=== PATIENT | female | born 1980 | race Caucasian/White ===

== ENCOUNTER 2016-09-02 22:39 | Emergency (ER) | payer MEDICAID ==
[~2016-09-02] VITALS: Ht 162.6 cm; Wt 91.0 kg
[~2016-09-02 22:39] MED LIST: DOXY100T PO; IBUP-238 PO
[2016-09-02 22:41] VITALS: BP 125/80; PULSE 83; RESP 15; TEMP 98.4; O2SAT 100
[2016-09-02] MEDS ORDERED: TOPA100T11 PO (22:48)
[2016-09-02] MEDS ORDERED: ABIL5TAB6 PO (22:48)
[2016-09-02] MEDS ORDERED: LITH150C PO (22:48)
[2016-09-02] MEDS ORDERED: SODIUM CHLOR 0.9% 1000 ML INJ 1,000 ML IV SCH (23:21)
[2016-09-02] MEDS ORDERED: SODIUM CHLORIDE 0.9% FLUSH 5 ML FLUSH IVF PRN (23:30)
[2016-09-02 23:45] LABS: AUTOMATED NEUTROPHIL # 3.7 TH/MM3 (1.8-7.7); BASOPHIL # 0.1 TH/MM3 (0-0.2); BASOPHIL % 0.6 % (0.0-2.0); EOSINOPHIL # 0.2 TH/MM3 (0-0.4); EOSINOPHIL % 2.4 % (0.0-4.0); HEMATOCRIT 44.1 % (35.0-46.0); HEMO FLAGS DIFF FINAL; LYMPH % 47.8 % (9.0-44.0); LYMPHOCYTE # 4.3 TH/MM3 (1.0-4.8); MEAN CELL VOLUME 86.1 FL (80.0-100.0); MEAN CORPUSCULAR HEMOGLOBIN 30.5 PG (27.0-34.0); MEAN CORPUSCULAR HGB CONC 35.4 % (32.0-36.0); MONO % 7.5 % (0.0-8.0); NEUT % 41.7 % (16.0-70.0); PLATELET COUNT 260 TH/MM3 (150-450); RED BLOOD COUNT 5.12 MIL/MM3 (4.00-5.30); RED CELL DISTRIBUTION WIDTH 13.4 % (11.6-17.2)
[2016-09-03 00:02] LABS: ANION GAP 9 MEQ/L (5-15); AST (GOT) 17 U/L (15-37); BICARBONATE 23.5 MEQ/L (21.0-32.0); BLOOD UREA NITROGEN 5 MG/DL (7-18); CHLORIDE 104 MEQ/L (98-107); GLOMERULAR FILTRATION RATE 70 ML/MIN (>89); POTASSIUM 3.4 MEQ/L (3.5-5.1); SODIUM (NA) 136 MEQ/L (136-145)
[2016-09-03 00:05] LABS: ALKALINE PHOSPHATASE 61 U/L (45-117); ALT (GPT) 26 U/L (10-53); BACTERIA, URINE RARE /hpf; BLOOD, URINE NEG (NEG); COMMENT (UR) CULT NOT INDICATED; CULTURE IF INDICATED CULT NOT INDICATED; GLUCOSE,URINE NEG (NEG); KETONE, URINE NEG (NEG); NITRITE,URINE NEG (NEG); PH, URINE 5.5 (5.0-8.5); SQUAMOUS EPITHELIAL CELL URINE 1 /hpf (0-5); TOTAL BILIRUBIN ADULT 0.4 MG/DL (0.2-1.0); URINE COLOR COLORLESS (YELLW/STRAW)
--- NOTE | 2016-09-03 00:40 | PD ---
HPI Chief Complaint: Abdominal Pain Time Seen by Provider: 23:11 Travel History International Travel<30 days: No Contact w/Intl Traveler<30days: No Traveled to known affect area: No History of Present Illness HPI On taking the patient's history she states that she only came here tonight because a friend was bringing in her son for evaluation of head injury and thought she should be evaluated as well. Patient denies any fever denies any nausea vomiting denies any constipation or diarrhea. Denies any blood in the stool. Denies any vaginal bleeding or vaginal discharge. Denies any chance of . Patient does have a history of bipolar disorder and takes lithium. PFSH Past Medical History Hx Anticoagulant Therapy: No Cancer: Yes (Per patient, cervical cancer resulting in surgery in 2004.) Cardiovascular Problems: Yes Chemotherapy: No Cerebrovascular Accident: No Diabetes: Yes Patient Takes Glucophage: No Diminished Hearing: No Endocrine: Yes (HYPOGLYCEMIA) Headaches: Yes (Per patient, 1 time a day.) Psychiatric: Yes (Inpatient, outpatient, psychotropic medication, and diagnosis.) Respiratory: No Immunizations Current: Yes Schizophrenia: Yes ?: Not LMP: 08/17/16 Menopausal: No : 3 Para: 1 Miscarriage: 0 : 2 Dilation and Curettage (D&C): Yes Past Surgical History Gynecologic Surgery: Yes (2004 LEEPS) Hysterectomy: No Other Surgery: Yes (LEEP) Social History Alcohol Use: Yes (ALMOST DAILY) Tobacco Use: Yes (1PPD) Substance Use: Yes (H/O ETOH, 17 YR METH HX) Allergies-Medications (Allergen,Severity, Reaction): Coded Allergies: Naproxen (Unverified Allergy, Severe, SWELLING, 09/02/16) Zyprexa (Unverified Allergy, Severe, SWELLING, 09/02/16) Zoloft (Verified Allergy, Mild, CONFUSED, 09/02/16) Reported Meds & Prescriptions Reported Meds & Active Scripts Active Reported Abilify (Aripiprazole) 5 Mg Tab 5 Mg PO DAILY [place] Carbonate 150 Mg Cap 150 Mg PO BID Topamax (Topiramate) 100 Mg Tab 100 Mg PO BID Review of Systems Except as stated in HPI: all other systems reviewed are Neg Physical Exam Narrative GENERAL: Well-developed well-nourished no apparent distress. SKIN: Warm and dry. HEAD: Atraumatic. Normocephalic. EYES: Pupils equal and round. No scleral icterus. No injection or drainage. ENT: No nasal bleeding or discharge. Mucous membranes pink and moist. NECK: Trachea midline. No JVD. CARDIOVASCULAR: Regular rate and rhythm. No murmur appreciated. RESPIRATORY: No accessory muscle use. Clear to auscultation. Breath sounds equal bilaterally. GASTROINTESTINAL: Abdomen soft, non-tender, nondistended. Hepatic and splenic margins not palpable. No tenderness to deep palpation, no peritoneal signs, no rebound no percussive tenderness. MUSCULOSKELETAL: No obvious deformities. No clubbing. No cyanosis. No edema. NEUROLOGICAL: Awake and alert. No obvious cranial nerve deficits. Motor grossly within normal limits. Normal speech. PSYCHIATRIC: Appropriate mood and affect; insight and judgment normal. Data Data Last Documented VS Vital Signs Date Time Temp Pulse Resp B/P Pulse Ox O2 Delivery O2 Flow Rate FiO2 09/02/16 23:14 15 09/02/16 22:41 98.4 83 125/80 100 Room Air Orders Complete Blood Count With Diff (09/02/16 23:21) Comprehensive Metabolic Panel (09/02/16 23:21) Lipase (09/02/16 23:21) Iv Access Insert/Monitor (09/02/16 23:21) Ecg Monitoring (09/02/16 23:21) Oximetry (09/02/16 23:21) Sodium Chlor 0.9% 1000 Ml Inj (Ns 1000 M (09/02/16 23:21) Sodium Chloride 0.9% Flush (Ns Flush) (09/02/16 23:30) Electrocardiogram (09/02/16 23:21) [place] (Li) (09/02/16 23:23) Urinalysis - C+S If Indicated (09/02/16 23:31) Ed Urine Pregnancytest Poc (09/02/16 23:31) Acetaminophen (Tylenol) (09/03/16 00:45) Labs Laboratory Tests Test 09/02/16 23:30 White Blood Count 9.0 TH/MM3 Red Blood Count 5.12 MIL/MM3 Hemoglobin 15.6 GM/DL Hematocrit 44.1 % Mean Corpuscular Volume 86.1 FL Mean Corpuscular Hemoglobin 30.5 PG Mean Corpuscular Hemoglobin 35.4 % Concent Red Cell Distribution Width 13.4 % Platelet Count 260 TH/MM3 Mean Platelet Volume 7.3 FL Neutrophils (%) (Auto) 41.7 % Lymphocytes (%) (Auto) 47.8 % Monocytes (%) (Auto) 7.5 % Eosinophils (%) (Auto) 2.4 % Basophils (%) (Auto) 0.6 % Neutrophils # (Auto) 3.7 TH/MM3 Lymphocytes # (Auto) 4.3 TH/MM3 Monocytes # (Auto) 0.7 TH/MM3 Eosinophils # (Auto) 0.2 TH/MM3 Basophils # (Auto) 0.1 TH/MM3 CBC Comment DIFF FINAL Differential Comment Urine Color COLORLESS Urine Turbidity CLEAR Urine pH 5.5 Urine Specific [place] 1.002 Urine Protein NEG mg/dL Urine Glucose (UA) NEG mg/dL Urine Ketones NEG mg/dL Urine Occult Blood NEG Urine Nitrite NEG Urine Bilirubin NEG Urine Urobilinogen LESS THAN 2.0 MG/DL Urine Leukocyte Esterase NEG Urine RBC LESS THAN 1 /hpf Urine Squamous Epithelial 1 /hpf Cells Urine Bacteria RARE /hpf Microscopic Urinalysis Comment CULT NOT INDICATED Sodium Level 136 MEQ/L Potassium Level 3.4 MEQ/L Chloride Level 104 MEQ/L Carbon Dioxide Level 23.5 MEQ/L Anion Gap 9 MEQ/L Blood Urea Nitrogen 5 MG/DL Creatinine 0.92 MG/DL Estimat Glomerular Filtration 70 ML/MIN Rate Random Glucose 94 MG/DL Calcium Level 9.1 MG/DL Total Bilirubin 0.4 MG/DL Aspartate Amino Transf 17 U/L (AST/SGOT) Alanine Aminotransferase 26 U/L (ALT/SGPT) Alkaline Phosphatase 61 U/L Total Protein 8.5 GM/DL Albumin 4.5 GM/DL Lipase 331 U/L [place] Level 0.4 MEQ/L [facility] Medical Decision Making Medical Screen Exam Complete: Yes Emergency Medical Condition: Yes Interpretation(s) EKG shows normal sinus rhythm normal axis normal R-wave progression. No concerning ST T changes intervals within normal limits. This normal EKG. Differential Diagnosis Abdominal pain, pelvic pain, UTI, yeast infection, count infection, torsion unlikely, appendicitis unlikely, acute abdomen extremely unlikely. Narrative Course Patient roomed in emergency primary, she appears well in no apparent distress. She admits that she only came here tonight because a friend was coming as well. Patient labs are reassuring lithium was undetectable. Patient's abdomen is benign no indication for imaging at this time. Recommended patient consideration for pelvic exam but she would rather follow up with her VENDING TECHNICIAN for this. Discussed symptomatically management home and return to ED criteria. Diagnosis Primary Impression: Lower abdominal pain Disposition: DISCHARGE HOME Condition: Stable Stevo Anderson MD Sep 03, 2016 00:40
[2016-09-03] MEDS ORDERED: ACETAMINOPHEN 325 MG TAB PO ONE (00:45)
--- NOTE | 2016-09-03 19:47 | EKG ---
Date Performed: 09/03/2016 Time Performed: 00:35:45 PTAGE: 35 years EKG: Sinus rhythm NORMAL ECG PREVIOUS TRACING : 04/09/2015 00.16 Compared to prior tracing no significant change DOCTOR: [place] Interpretating Date/Time 09/03/2016 19:46:09
[2016-10-16] MEDS ORDERED: BREX1TAB6 PO (11:27)
[2016-10-16] MEDS ORDERED: PALI234P IM (11:27)
== END 2016-09-03 01:01 | disposition home or self-care (01) ==
LOC: NEPA 22:39
DX: R10.30 Lower abdominal pain, unspecified (principal); F31.9 Bipolar disorder, unspecified; E11.9 Type 2 diabetes mellitus without complications
CPT/HCPCS: 80053; 80178; 81001; 83690; 84703; 85025; 93005; 99283; J7030

== ENCOUNTER 2016-09-13 22:13 | Inpatient (IN) | payer OTHER ==
[~2016-09-13] VITALS: Ht 162.6 cm; Wt 82.9 kg
[~2016-09-13 22:13] MED LIST changes: +ABIL5TAB6 PO; -DOXY100T PO; -IBUP-238 PO; +LITH150C PO; +TOPA100T11 PO
[2016-09-13 22:24] VITALS: BP 124/78; PULSE 79; RESP 16; TEMP 98.4; O2SAT 98
--- NOTE | 2016-09-13 22:31 | PD ---
HPI Chief Complaint: Psychiatric Symptoms Time Seen by Provider: 22:10 Travel History International Travel<30 days: No Contact w/Intl Traveler<30days: No Traveled to known affect area: No History of Present Illness HPI 35-year-old female presents under Rodriguez act initiated by the Police Department. According to her paperwork, "Bernie stated that she felt like hurting someone if she was not evaluated. Bernie also stated she felt like ending it all by blowing her brains out. Stated she is having major anxiety." The patient reportedly is a resident at [facility]. She says that over the past 2 weeks she's been feeling this way and she spoke to nurse about it today who recommended calling 911. In addition she feels like TV technical aid somehow coming out of her mouth and this is concerning her. She has no other complaints at this time. Reportedly she takes Topamax, Abilify as well as lithium and she has been using her medications as prescribed. PFSH Past Medical History Hx Anticoagulant Therapy: No Cancer: Yes (Per patient, cervical cancer resulting in surgery in 2004.) Cardiovascular Problems: Yes Chemotherapy: No Cerebrovascular Accident: No Diabetes: Yes Diminished Hearing: No Endocrine: Yes (HYPOGLYCEMIA) Headaches: Yes (Per patient, 1 time a day.) Psychiatric: Yes (Inpatient, outpatient, psychotropic medication, and diagnosis.) Respiratory: No Immunizations Current: Yes Schizophrenia: Yes ?: Unknown LMP: 08/17/16 Menopausal: No : 3 Para: 1 Miscarriage: 0 : 2 Dilation and Curettage (D&C): Yes Past Surgical History Gynecologic Surgery: Yes (2004 LEEPS) Hysterectomy: No Other Surgery: Yes (LEEP) Social History Alcohol Use: Yes (ALMOST DAILY) Tobacco Use: Yes (1PPD) Substance Use: Yes (H/O ETOH, 17 YR METH HX) Allergies-Medications (Allergen,Severity, Reaction): Coded Allergies: Naproxen (Unverified Allergy, Severe, SWELLING, 09/13/16) Zyprexa (Unverified Allergy, Severe, SWELLING, 09/13/16) Zoloft (Verified Allergy, Mild, CONFUSED, 09/13/16) Reported Meds & Prescriptions Reported Meds & Active Scripts Active Reported Abilify (Aripiprazole) 5 Mg Tab 5 Mg PO DAILY [place] Carbonate 150 Mg Cap 150 Mg PO BID Topamax (Topiramate) 100 Mg Tab 100 Mg PO BID Review of Systems Except as stated in HPI: all other systems reviewed are Neg Physical Exam Narrative GENERAL: Well-nourished female in no acute distress SKIN: Warm and dry. HEAD: Atraumatic. Normocephalic. EYES: Pupils equal and round. No scleral icterus. No injection or drainage. ENT: No nasal bleeding or discharge. Mucous membranes pink and moist. NECK: Trachea midline. No JVD. CARDIOVASCULAR: Regular rate and rhythm. No murmur appreciated. RESPIRATORY: No accessory muscle use. Clear to auscultation. Breath sounds equal bilaterally. GASTROINTESTINAL: Abdomen soft, non-tender, nondistended. Hepatic and splenic margins not palpable. MUSCULOSKELETAL: No obvious deformities. No clubbing. No cyanosis. No edema. NEUROLOGICAL: Awake and alert. No obvious cranial nerve deficits. Motor grossly within normal limits. Normal speech. PSYCHIATRIC: Elevated mood, insight and judgment appear limited. Data Data Last Documented VS Vital Signs Date Time Temp Pulse Resp B/P Pulse Ox O2 Delivery O2 Flow Rate FiO2 09/14/16 08:00 97.5 92 18 118/76 100 Room Air Orders Complete Blood Count With Diff (09/13/16 22:18) Comprehensive Metabolic Panel (09/13/16 22:18) Ed Urine Pregnancytest Poc (09/13/16 22:18) Psych Screen (09/13/16 22:18) [place] (Li) (09/13/16 22:18) Drug Screen, Random Urine (09/13/16 22:18) Alcohol (Ethanol) (09/13/16 22:18) Diet Regular Basic (09/14/16 Breakfast) Admit Order (Ed Use Only) (09/14/16 08:35) Labs Laboratory Tests Test 09/13/16 09/13/16 22:30 22:35 White Blood Count 8.2 TH/MM3 Red Blood Count 4.95 MIL/MM3 Hemoglobin 15.1 GM/DL Hematocrit 42.6 % Mean Corpuscular Volume 86.1 FL Mean Corpuscular Hemoglobin 30.5 PG Mean Corpuscular Hemoglobin 35.4 % Concent Red Cell Distribution Width 13.2 % Platelet Count 247 TH/MM3 Mean Platelet Volume 7.6 FL Neutrophils (%) (Auto) 55.8 % Lymphocytes (%) (Auto) 36.0 % Monocytes (%) (Auto) 5.7 % Eosinophils (%) (Auto) 2.0 % Basophils (%) (Auto) 0.5 % Neutrophils # (Auto) 4.6 TH/MM3 Lymphocytes # (Auto) 3.0 TH/MM3 Monocytes # (Auto) 0.5 TH/MM3 Eosinophils # (Auto) 0.2 TH/MM3 Basophils # (Auto) 0.0 TH/MM3 CBC Comment DIFF FINAL Differential Comment Sodium Level 140 MEQ/L Potassium Level 3.4 MEQ/L Chloride Level 107 MEQ/L Carbon Dioxide Level 24.5 MEQ/L Anion Gap 9 MEQ/L Blood Urea Nitrogen 7 MG/DL Creatinine 0.89 MG/DL Estimat Glomerular Filtration 73 ML/MIN Rate Random Glucose 102 MG/DL Calcium Level 8.9 MG/DL Total Bilirubin 0.3 MG/DL Aspartate Amino Transf 11 U/L (AST/SGOT) Alanine Aminotransferase 21 U/L (ALT/SGPT) Alkaline Phosphatase 52 U/L Total Protein 7.9 GM/DL Albumin 3.9 GM/DL [place] Level 0.9 MEQ/L Ethyl Alcohol Level LESS THAN 3 MG/DL Urine Opiates Screen NEG Urine Barbiturates Screen NEG Urine Amphetamines Screen NEG Urine Benzodiazepines Screen NEG Urine Cocaine Screen NEG Urine Cannabinoids Screen NEG MDM Medical Decision Making Medical Screen Exam Complete: Yes Emergency Medical Condition: Yes Medical Record Reviewed: Yes Differential Diagnosis Bipolar disorder, medication noncompliance, acute psychosis, schizophrenia, schizoaffective disorder, substance-induced disorder Narrative Course 35-year-old female presents under Rodriguez act for evaluation of suicidal thoughts and bizarre thought patterns. Mental health screening discussed with the patient. Psychiatric screen ordered. Routine lab work as well as lithium level have been ordered. The patient will be medical cleared for psychiatric disposition. Diagnosis Primary Impression: Medical clearance for psychiatric admission Escobar Krishna Sep 13, 2016 22:31
[2016-09-13 22:45] LABS: AUTOMATED NEUTROPHIL # 4.6 TH/MM3 (1.8-7.7); BASOPHIL % 0.5 % (0.0-2.0); EOSINOPHIL # 0.2 TH/MM3 (0-0.4); HEMATOCRIT 42.6 % (35.0-46.0); HEMO FLAGS DIFF FINAL; MEAN CELL VOLUME 86.1 FL (80.0-100.0); MEAN CORPUSCULAR HEMOGLOBIN 30.5 PG (27.0-34.0); MEAN CORPUSCULAR HGB CONC 35.4 % (32.0-36.0); MONO % 5.7 % (0.0-8.0); NEUT % 55.8 % (16.0-70.0); PLATELET COUNT 247 TH/MM3 (150-450); RED BLOOD COUNT 4.95 MIL/MM3 (4.00-5.30); RED CELL DISTRIBUTION WIDTH 13.2 % (11.6-17.2); WHITE BLOOD COUNT 8.2 TH/MM3 (4.0-11.0)
[2016-09-13 22:56] LABS: AMPHETAMINE, URINE NEG (NEG); BARBITURATES, URINE NEG (NEG); COCAINE, URINE NEG (NEG)
[2016-09-13 23:02] LABS: ANION GAP 9 MEQ/L (5-15)
[2016-09-13 23:05] LABS: ALKALINE PHOSPHATASE 52 U/L (45-117); ALT (GPT) 21 U/L (10-53); AST (GOT) 11 U/L (15-37); BICARBONATE 24.5 MEQ/L (21.0-32.0); BLOOD UREA NITROGEN 7 MG/DL (7-18); CHLORIDE 107 MEQ/L (98-107); GLOMERULAR FILTRATION RATE 73 ML/MIN (>89); POTASSIUM 3.4 MEQ/L (3.5-5.1); SODIUM (NA) 140 MEQ/L (136-145); TOTAL BILIRUBIN ADULT 0.3 MG/DL (0.2-1.0)
[2016-09-14 04:00] VITALS: BP 106/62; PULSE 75; RESP 16; O2SAT 100
[2016-09-14 08:00] VITALS: BP 118/76; PULSE 92; RESP 18; TEMP 97.5; O2SAT 100
[2016-09-14 10:00] VITALS: BP 145/77; PULSE 84; RESP 18; TEMP 97.8; O2SAT 97
[2016-09-14] MEDS ORDERED: ALUMINUM/MAGNESIUM/SIMETH 30 ML CUP PO PRN (10:00)
[2016-09-14] MEDS ORDERED: LORazepam 0.5 MG TAB age > 65 yrs PO PRN (10:00)
[2016-09-14] MEDS ORDERED: LORazepam 2 MG/ML VIAL IM PRN (10:00)
[2016-09-14] MEDS ORDERED: diphenhydrAMINE HCL 50 MG/ML VIAL - HS PRN IM (10:00)
[2016-09-14] MEDS ORDERED: LORazepam 2 MG/ML VIAL - age > 65 yrs IM PRN (10:00)
[2016-09-14 12:53] VITALS: BP 134/84; PULSE 73; RESP 20; O2SAT 100
[2016-09-14 19:34] VITALS: BP 123/79; PULSE 79; RESP 58; TEMP 97.5; O2SAT 98
[2016-09-14] MEDS: REMOVE OLD NICOTINE PATCH T-DERMAL SCH (21:00)
[2016-09-15 08:32] LABS: ANION GAP 9 MEQ/L (5-15); CHLORIDE 113 MEQ/L (98-107); GLOMERULAR FILTRATION RATE 96 ML/MIN (>89); POTASSIUM 3.6 MEQ/L (3.5-5.1); SODIUM (NA) 144 MEQ/L (136-145)
[2016-09-15 08:55] LABS: BLOOD UREA NITROGEN 7 MG/DL (7-18); HDL CHOLESTEROL 36.4 MG/DL (40.0-60.0); LDL CHOLESTEROL 63 MG/DL (0-99)
[2016-09-15] MEDS: NICOTINE 21 MG/24 HR PATCH T-DERMAL SCH (08:56)
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
[2016-09-15] MEDS: TOPIRAMATE 100 MG TAB PO SCH ×2 (09:33→21:20)
[2016-09-15] MEDS: ARIPiprazole 5 MG TAB PO SCH ×2 (09:33→21:20)
[2016-09-15] MEDS: LITHIUM CARBONATE 300 MG TAB PO SCH ×2 (09:33→21:20)
[2016-09-15 13:20] LABS: HEMOGLOBIN A1a 0.8 %; HEMOGLOBIN A1b 1.4 %; HEMOGLOBIN Ao 87.6 %; HEMOGLOBIN LA1C 1.7 %; HEMOGLOBIN P3 3.1 %
[2016-09-15 18:54] VITALS: BP 97/53; PULSE 74; RESP 18; O2SAT 98
[2016-09-15] MEDS: REMOVE OLD NICOTINE PATCH T-DERMAL SCH (21:00)
[2016-09-16] MEDS: NICOTINE 21 MG/24 HR PATCH T-DERMAL SCH (09:00)
[2016-09-16] MEDS: ARIPiprazole 5 MG TAB PO SCH (09:26)
[2016-09-16] MEDS: LITHIUM CARBONATE 300 MG TAB PO SCH ×2 (09:26→20:56)
[2016-09-16] MEDS: TOPIRAMATE 100 MG TAB PO SCH ×2 (09:26→20:56)
[2016-09-16 10:00] VITALS: BP 132/85; PULSE 80; RESP 17; O2SAT 99
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
[2016-09-16 18:27] VITALS: BP 112/72; PULSE 76; RESP 18; O2SAT 100
[2016-09-16] MEDS: ARIPiprazole 10 MG TAB PO SCH (20:56)
[2016-09-16] MEDS: REMOVE OLD NICOTINE PATCH T-DERMAL SCH (20:57)
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
[2016-09-17] MEDS: NICOTINE 21 MG/24 HR PATCH T-DERMAL SCH (09:00)
[2016-09-17] MEDS: ARIPiprazole 10 MG TAB PO SCH ×2 (09:00→20:13)
[2016-09-17] MEDS: LITHIUM CARBONATE 300 MG TAB PO SCH ×2 (09:00→20:13)
[2016-09-17] MEDS: TOPIRAMATE 100 MG TAB PO SCH ×2 (09:00→20:13)
[2016-09-17 18:20] LABS: BACTERIA, URINE OCC /hpf; BLOOD, URINE MOD (NEG); GLUCOSE,URINE NEG (NEG); KETONE, URINE NEG (NEG); MUCUS URINE FEW /lpf (OCC); NITRITE,URINE NEG (NEG); PH, URINE 5.5 (5.0-8.5); SQUAMOUS EPITHELIAL CELL URINE 6 /hpf (0-5); URINE COLOR LIGHT-YELLOW (YELLW/STRAW)
[2016-09-17] MEDS: MAGNESIUM HYDROXIDE SUSP 30 ML CUP PO PRN (19:40)
[2016-09-17 19:50] VITALS: BP 105/76; PULSE 72; RESP 18; TEMP 98.6; O2SAT 98
[2016-09-17] MEDS: REMOVE OLD NICOTINE PATCH T-DERMAL SCH (20:14)
[2016-09-18 05:31] VITALS: BP 117/74; PULSE 66; RESP 18; O2SAT 99
[2016-09-18] MEDS: ARIPiprazole 10 MG TAB PO SCH ×2 (08:56→20:26)
[2016-09-18] MEDS: TOPIRAMATE 100 MG TAB PO SCH ×2 (08:57→20:26)
[2016-09-18] MEDS: LITHIUM CARBONATE 300 MG TAB PO SCH ×2 (08:57→20:26)
[2016-09-18] MEDS: NICOTINE 21 MG/24 HR PATCH T-DERMAL SCH (08:57)
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
[2016-09-18 10:55] LABS: BACTERIA, URINE RARE /hpf; BLOOD, URINE SMALL (NEG); GLUCOSE,URINE NEG (NEG); KETONE, URINE NEG (NEG); MUCUS URINE FEW /lpf (OCC); NITRITE,URINE NEG (NEG); SQUAMOUS EPITHELIAL CELL URINE 2 /hpf (0-5); URINE COLOR LIGHT-YELLOW (YELLW/STRAW)
[2016-09-18 10:58] LABS: COMMENT (UR) CULT NOT INDICATED; CULTURE IF INDICATED CULT NOT INDICATED
[2016-09-18 18:24] VITALS: BP 115/70; PULSE 91; RESP 18; O2SAT 99
[2016-09-18] MEDS: REMOVE OLD NICOTINE PATCH T-DERMAL SCH (21:00)
[2016-09-18] MEDS: ACETAMINOPHEN 325 MG TAB PO PRN (23:50)
[2016-09-19] MEDS: NICOTINE 21 MG/24 HR PATCH T-DERMAL SCH (08:29)
[2016-09-19] MEDS: TOPIRAMATE 100 MG TAB PO SCH ×2 (08:29→20:52)
[2016-09-19] MEDS: ARIPiprazole 10 MG TAB PO SCH ×2 (08:29→20:52)
[2016-09-19] MEDS: LITHIUM CARBONATE 300 MG TAB PO SCH ×2 (08:29→20:52)
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
[2016-09-19 18:00] VITALS: BP 150/80; PULSE 70; RESP 18; O2SAT 98
[2016-09-19] MEDS: REMOVE OLD NICOTINE PATCH T-DERMAL SCH (20:54)
[2016-09-20 06:23] VITALS: BP 110/59; PULSE 56; RESP 18; TEMP 97.2; O2SAT 97
[2016-09-20] MEDS: ARIPiprazole 10 MG TAB PO SCH ×2 (08:28→21:11)
[2016-09-20] MEDS: TOPIRAMATE 100 MG TAB PO SCH ×2 (08:28→21:11)
[2016-09-20] MEDS: NICOTINE 21 MG/24 HR PATCH T-DERMAL SCH (08:29)
[2016-09-20] MEDS: LITHIUM CARBONATE 300 MG TAB PO SCH ×2 (08:29→21:13)
--- NOTE | 2016-09-20 13:54 | HHI.PYPN ---
Subjective Remarks Patient was seen and case discussed with nursing. Patient's mood and affect remain elevated. She is smiling excessively throughout the interview. Per nursing she is witnessed talking to herself and responding to internal stimuli. Patient admits to voices telling her happy things and messages from the TV. Compliant with medications. Denies suicidal ideations thought or plan Objective Alert: Yes [place]: Person, Place Mood: Depressed Affect: Manic Memory Intact: Recent (mildly impaired) Hallucinations: Auditory (happy things, ideas of reference), Other (patient denied any active auditory hallucinations but sometimes seems responding to internal stimuli) Delusions: Yes Delusion Type: Paranoid Suicidal: Ideation (denies any active suicidal ideation intentions or plan) Homicidal: Ideation (denies any homicidal ideation intentions or plan) Insight/Judgement Poor Vitals/IOs Vital Signs Date Time Temp Pulse Resp B/P Pulse Ox O2 Delivery O2 Flow Rate FiO2 09/20/16 06:23 97.2 56 18 110/59 97 Assessment & Plan Problem List: (1) schizoaffective disorder depressed Assessment & Plan Continue current treatment plan Justification for Cont. Inpt. Patient will decompensate in a less restrictive setting Request HC Surrog/Guard Advoc?: No Lorenzo Waldrop DO Sep 20, 2016 13:54
[2016-09-20 17:34] VITALS: BP 118/74; PULSE 64; RESP 18; TEMP 97.3; O2SAT 99
[2016-09-20 20:06] VITALS: BP 118/74; PULSE 64; RESP 16; TEMP 97.3; O2SAT 99
[2016-09-20] MEDS: REMOVE OLD NICOTINE PATCH T-DERMAL SCH (21:00)
[2016-09-20] MEDS: diphenhydrAMINE HCL 50 MG CAP - HS PRN PO (21:11)
[2016-09-21] MEDS: ARIPiprazole 10 MG TAB PO SCH (08:28)
[2016-09-21] MEDS: NICOTINE 21 MG/24 HR PATCH T-DERMAL SCH (08:28)
[2016-09-21] MEDS: LITHIUM CARBONATE 300 MG TAB PO SCH ×2 (08:28→20:47)
[2016-09-21] MEDS: TOPIRAMATE 100 MG TAB PO SCH ×2 (08:29→20:47)
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
[2016-09-21] MEDS: LORazepam 1 MG TAB PO PRN (13:50)
[2016-09-21 16:34] VITALS: BP 117/71; PULSE 63; RESP 18; O2SAT 100
[2016-09-21] MEDS: REMOVE OLD NICOTINE PATCH T-DERMAL SCH (20:47)
[2016-09-21] MEDS: diphenhydrAMINE HCL 50 MG CAP - HS PRN PO (20:47)
[2016-09-21] MEDS: ARIPiprazole 15 MG TAB PO SCH (20:47)
[2016-09-22] MEDS: LITHIUM CARBONATE 300 MG TAB PO SCH ×2 (08:15→19:58)
[2016-09-22] MEDS: ARIPiprazole 15 MG TAB PO SCH ×2 (08:15→19:59)
[2016-09-22] MEDS: TOPIRAMATE 100 MG TAB PO SCH ×2 (08:15→19:58)
[2016-09-22] MEDS: NICOTINE 21 MG/24 HR PATCH T-DERMAL SCH (09:00)
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
[2016-09-22] MEDS ORDERED: SENNOSIDES SYRUP 8.8 MG/5 ML CUP PO PRN (15:15)
[2016-09-22 17:30] VITALS: BP 134/66; PULSE 71; RESP 18; O2SAT 99
[2016-09-22] MEDS: REMOVE OLD NICOTINE PATCH T-DERMAL SCH (20:09)
[2016-09-23] MEDS: ACETAMINOPHEN 325 MG TAB PO PRN (05:49)
[2016-09-23 06:31] VITALS: BP 114/67; PULSE 66; RESP 17; TEMP 98.1; O2SAT 96
[2016-09-23] MEDS: ARIPiprazole 15 MG TAB PO SCH ×2 (08:47→20:23)
[2016-09-23] MEDS: NICOTINE 21 MG/24 HR PATCH T-DERMAL SCH (08:47)
[2016-09-23] MEDS: LITHIUM CARBONATE 300 MG TAB PO SCH ×2 (08:47→20:23)
[2016-09-23] MEDS: REMOVE OLD NICOTINE PATCH T-DERMAL SCH (08:47)
[2016-09-23] MEDS: TOPIRAMATE 100 MG TAB PO SCH ×2 (08:47→20:23)
[2016-09-23 10:41] LABS: BACTERIA, URINE RARE /hpf; BLOOD, URINE NEG (NEG); COMMENT (UR) CULT NOT INDICATED; CULTURE IF INDICATED CULT NOT INDICATED; GLUCOSE,URINE NEG (NEG); KETONE, URINE NEG (NEG); MUCUS URINE MANY /lpf (OCC); NITRITE,URINE NEG (NEG); PH, URINE 5.5 (5.0-8.5); SQUAMOUS EPITHELIAL CELL URINE 16 /hpf (0-5); URINE COLOR YELLOW (YELLW/STRAW)
--- NOTE | 2016-09-23 12:19 | HHI.PYPN ---
Subjective Remarks Patient seen and examined with nurse. Chart reviewed. Case discussed with nursing staff who reports patient was complaining of dysuria this morning and was grabbing at her genitalia. She was also walking around, apparently somewhat internally stimulated saying randomly "don't touch me." On my examination today, patient complains of ongoing dysuria and polyuria but no nocturia. Patient says that the "don't touch me" was "just kind of a joke" but then later admits that she is responding to internal stimuli at that time. She declines medication adjustment to target this symptom, and is pleased with her medication regimen generally. Denies side effects from meds. Review of Systems Other As above. Otherwise, no physical complaints. Objective Alert: Yes [place]: Person, Place Mood: Calm Affect: Blunted Memory Intact: Comment (Not formally assessed today) Hallucinations: Other (no audiovisual hallucinations currently but see above) Delusions: No Delusion Type: Other (no sarah delusional material noted) Suicidal: Ideation (no suicidal ideation) Homicidal: Ideation (no homicidal ideation) Insight/Judgement Poor Remarks No abnormal motor movements noted. Thought process fairly linear. Labs Test 09/23/16 07:30 Urine Color YELLOW Urine Turbidity HAZY Urine pH 5.5 Urine Specific [place] 1.027 Urine Protein TRACE mg/dL Urine Glucose (UA) NEG mg/dL Urine Ketones NEG mg/dL Urine Occult Blood NEG Urine Nitrite NEG Urine Bilirubin NEG Urine Urobilinogen LESS THAN 2.0 MG/DL Urine Leukocyte Esterase LARGE Urine RBC 2 /hpf Urine WBC 5 /hpf Urine Squamous Epithelial 16 /hpf Cells Urine Bacteria RARE /hpf Urine Mucus MANY /lpf Microscopic Urinalysis Comment CULT NOT INDICATED Labs reviewed. I note minimal white blood cells and urinalysis but large leukocyte esterase. Vitals/IOs Vital Signs Date Time Temp Pulse Resp B/P Pulse Ox O2 Delivery O2 Flow Rate FiO2 09/23/16 06:31 98.1 66 17 114/67 96 Assessment & Plan Problem List: (1) Schizoaffective disorder ICD Code: F25.9 (2) UTI (urinary tract infection) ICD Code: N39.0 Assessment & Plan Given patient's reported symptoms and urinalysis findings, I will treat empirically for urinary tract infection with Cipro 7 days. I have also requested a urine culture from the laboratory and will follow-up sensitivities. Per patient preference, I will make no adjustment to her psychotropics at this time, although if psychotic symptoms persist or represent a barrier to discharge, we may need to insist upon the dose titration. Continue other medications and care as ordered. Justification for Cont. Inpt. Impairments in reality construction. Discharge Planning Patient does seem much calmer and so my hope would be to try to transition her back to her assisted living facility by the end of the week barring some clinical deterioration. I have left a message for the counselor to get into contact with the facility to plan tentatively for discharge Wednesday. Request HC Surrog/Guard Advoc?: No Problem Qualifiers (1) Schizoaffective disorder: Qualified Code: F25.1 - Schizoaffective disorder, depressive type (2) UTI (urinary tract infection): Qualified Code: N30.00 - Acute cystitis without hematuria Angelo Regan MD Sep 23, 2016 12:19
[2016-09-23] MEDS: CIPROFLOXACIN 500 MG TAB PO SCH ×2 (13:59→20:23)
[2016-09-23 19:00] VITALS: BP 109/65; PULSE 80; RESP 17; TEMP 98.5; O2SAT 90
[2016-09-24 05:25] VITALS: BP 125/68; PULSE 69; RESP 17; TEMP 97.4; O2SAT 98
[2016-09-24] MEDS: CIPROFLOXACIN 500 MG TAB PO SCH ×2 (08:21→20:10)
[2016-09-24] MEDS: NICOTINE 21 MG/24 HR PATCH T-DERMAL SCH (08:21)
[2016-09-24] MEDS: TOPIRAMATE 100 MG TAB PO SCH ×2 (08:21→20:10)
[2016-09-24] MEDS: LITHIUM CARBONATE 300 MG TAB PO SCH ×2 (08:21→20:10)
[2016-09-24] MEDS: ARIPiprazole 15 MG TAB PO SCH ×2 (08:21→20:10)
--- NOTE | 2016-09-24 11:32 | HHI.PYPN ---
Subjective Remarks Patient seen and examined with nurse. Chart reviewed. Case discussed with nursing staff who reports that the patient is somewhat interpersonally odd at times but has not been disruptive or aggressive overnight. On my examination today, the patient is in good spirits. She describes her mood is happy and says that she has been enjoying herself drawing and reading on the unit. No SI or HI voiced. Denies side effects from medications. Review of Systems Other Patient reports that sensation of dysuria is improved with Cipro. No other physical complaints. Objective Alert: Yes [place]: Person, Place Mood: Calm, Happy Affect: Other (fairly full and reactive today) Memory Intact: Comment (seems fair on clinical exam) Hallucinations: Other (no AVH) Delusions: No Delusion Type: Other (no delusions elicited) Suicidal: Ideation (no SI) Homicidal: Ideation (no HI) Insight/Judgement Poor Remarks Thought process linear. No abnormal motor movements noted. Labs Date/Time Procedure Status Source Growth 09/23/16 07:30 Urine Culture Received Urine Other Pending Labs reviewed. Urine culture remains pending. Vitals/IOs Vital Signs Date Time Temp Pulse Resp B/P Pulse Ox O2 Delivery O2 Flow Rate FiO2 09/24/16 05:25 97.4 69 17 125/68 98 Assessment & Plan Problem List: (1) Schizoaffective disorder ICD Code: F25.9 (2) UTI (urinary tract infection) ICD Code: N39.0 Assessment & Plan Continue Abilify and other psychotropics as ordered. Continue Cipro for UTI. Continue other medications and care as ordered. Justification for Cont. Inpt. Risk for decompensation outside of the structure of her facility. I have asked that counselor to reach out to facility to discuss possible discharge tomorrow. Discharge Planning Monitor overnight. Hopeful for discharge tomorrow or perhaps Wednesday at the latest barring some clinical worsening. Request HC Surrog/Guard Advoc?: No Problem Qualifiers (1) Schizoaffective disorder: Qualified Code: F25.1 - Schizoaffective disorder, depressive type (2) UTI (urinary tract infection): Qualified Code: N30.00 - Acute cystitis without hematuria Angelo Regan MD Sep 24, 2016 11:32
[2016-09-24] MEDS: LORazepam 1 MG TAB PO PRN (14:34)
[2016-09-24 15:15] VITALS: BP 103/65; PULSE 79; RESP 18; O2SAT 100
[2016-09-24] MEDS: REMOVE OLD NICOTINE PATCH T-DERMAL SCH (20:10)
[2016-09-25] MEDS: ACETAMINOPHEN 325 MG TAB PO PRN (04:52)
[2016-09-25 05:35] VITALS: BP 118/72; PULSE 61; RESP 18; O2SAT 99
[2016-09-25] MEDS: LITHIUM CARBONATE 300 MG TAB PO SCH ×2 (08:17→20:10)
[2016-09-25] MEDS: TOPIRAMATE 100 MG TAB PO SCH ×2 (08:17→20:10)
[2016-09-25] MEDS: CIPROFLOXACIN 500 MG TAB PO SCH ×2 (08:17→20:10)
[2016-09-25] MEDS: ARIPiprazole 15 MG TAB PO SCH (08:18)
[2016-09-25] MEDS: NICOTINE 21 MG/24 HR PATCH T-DERMAL SCH (08:18)
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
[2016-09-25] MEDS: DOCUSATE SODIUM 50 MG/SENNA 8.6 MG TAB PO PRN (14:42)
[2016-09-25 15:30] VITALS: BP 114/70; PULSE 68; RESP 18; O2SAT 100
[2016-09-25] MEDS: LURASIDONE 40 MG TAB PO SCH (17:24)
[2016-09-25] MEDS ORDERED: ZIPRASIDONE HCL 40 MG CAP PO SCH (18:00)
[2016-09-25] MEDS: REMOVE OLD NICOTINE PATCH T-DERMAL SCH (20:11)
[2016-09-25] MEDS: MAGNESIUM HYDROXIDE SUSP 30 ML CUP PO PRN (22:21)
[2016-09-26] MEDS: LORazepam 1 MG TAB PO PRN (04:22)
[2016-09-26 05:32] VITALS: BP 126/77; PULSE 70; RESP 18; O2SAT 98
[2016-09-26] MEDS: NICOTINE 21 MG/24 HR PATCH T-DERMAL SCH (08:26)
[2016-09-26] MEDS: CIPROFLOXACIN 500 MG TAB PO SCH ×2 (08:27→20:29)
[2016-09-26] MEDS: LITHIUM CARBONATE 300 MG TAB PO SCH ×2 (08:27→20:29)
[2016-09-26] MEDS: REMOVE OLD NICOTINE PATCH T-DERMAL SCH (08:27)
[2016-09-26] MEDS: TOPIRAMATE 100 MG TAB PO SCH ×2 (08:27→20:29)
[2016-09-26] MEDS: DOCUSATE SODIUM 50 MG/SENNA 8.6 MG TAB PO PRN (10:05)
--- NOTE | 2016-09-26 16:09 | HHI.PYPN ---
Subjective Remarks Pt seen and discussed with staff. She is tolerating change to latuda without side effects. She was observed having sarah and animated conversation with unseen entities but denies AH. She appears internally preoccupied during exam.She reports mood is " a little high" and staff report intrusive behavior. No SI/HI. Objective Alert: Yes [place]: Person, Place Mood: Other (elevated) Affect: Other (mildly expansive) Memory Intact: Comment (Remains fair) Hallucinations: Other (appears to be responding to internal stimuli at times) Delusions: Yes Delusion Type: Paranoid Suicidal: Ideation (No SI) Homicidal: Ideation (No HI) Insight/Judgement poor Labs Date/Time Procedure Status Source Growth 09/23/16 07:30 Urine Culture - Final Complete Urine Other 50-100,000 CFU/ML MIXED GRAM POSITIVE... Vitals/IOs Vital Signs Date Time Temp Pulse Resp B/P Pulse Ox O2 Delivery O2 Flow Rate FiO2 09/26/16 05:32 70 18 126/77 98 09/24/16 05:25 97.4 Assessment & Plan Problem List: (1) Schizoaffective disorder ICD Code: F25.9 Assessment & Plan Continue current tx plan. Estimated LOS: days Justification for Cont. Inpt. impairments in reality construction and social functioning Request HC Surrog/Guard Advoc?: No Problem Qualifiers (1) Schizoaffective disorder: Qualified Code: F25.1 - Schizoaffective disorder, depressive type Mindy Jamison MD Sep 26, 2016 16:09
[2016-09-26] MEDS: LURASIDONE 40 MG TAB PO SCH (17:15)
[2016-09-26 17:30] VITALS: BP 111/63; PULSE 75; RESP 18; O2SAT 100
[2016-09-26] MEDS: MAGNESIUM HYDROXIDE SUSP 30 ML CUP PO PRN (18:47)
[2016-09-26 19:00] VITALS: BP 111/63; PULSE 75; RESP 18
[2016-09-27 05:39] VITALS: BP 129/72; PULSE 78; RESP 18; TEMP 98.2
[2016-09-27] MEDS: LITHIUM CARBONATE 300 MG TAB PO SCH ×2 (08:54→20:24)
[2016-09-27] MEDS: NICOTINE 21 MG/24 HR PATCH T-DERMAL SCH (08:54)
[2016-09-27] MEDS: CIPROFLOXACIN 500 MG TAB PO SCH ×2 (08:54→20:24)
[2016-09-27] MEDS: TOPIRAMATE 100 MG TAB PO SCH ×2 (08:54→20:24)
--- NOTE | 2016-09-27 12:31 | HHI.PYPN ---
Subjective Remarks Pt seen and discussed with staff. She is compliant with medications and tolerating without side effects. She reports that she likes Latuda and feels mood is better. She remains intrusive and impulsive. Staff have had to redirect due to flirtacious behavior with peers and inappropriate dress. Irritability and agitation have decreased. No SI/HI. Objective Alert: Yes [place]: Person, Place, Date, Situation Mood: Other (elevated) Affect: Other (mildly expansive) Memory Intact: Comment (fair) Hallucinations: Other (appears less internally stimulated today) Delusions: Yes Delusion Type: Paranoid (decreased) Suicidal: Ideation (No SI) Homicidal: Ideation (No HI) Insight/Judgement poor Labs Date/Time Procedure Status Source Growth 09/23/16 07:30 Urine Culture - Final Complete Urine Other 50-100,000 CFU/ML MIXED GRAM POSITIVE... Vitals/IOs Vital Signs Date Time Temp Pulse Resp B/P Pulse Ox O2 Delivery O2 Flow Rate FiO2 09/27/16 05:39 98.2 78 18 129/72 09/26/16 17:30 100 Assessment & Plan Problem List: (1) Schizoaffective disorder ICD Code: F25.9 Assessment & Plan Pt improving. Continue current tx plan. Estimated LOS: days Justification for Cont. Inpt. impairments in social functioning and risk of decompensation Request HC Surrog/Guard Advoc?: No Problem Qualifiers (1) Schizoaffective disorder: Qualified Code: F25.1 - Schizoaffective disorder, depressive type Mindy Jamison MD Sep 27, 2016 12:31
[2016-09-27] MEDS: LURASIDONE 40 MG TAB PO SCH (17:15)
[2016-09-27] MEDS: REMOVE OLD NICOTINE PATCH T-DERMAL SCH (20:25)
[2016-09-28 05:50] VITALS: BP 119/73; PULSE 70; RESP 18; O2SAT 100
[2016-09-28] MEDS: TOPIRAMATE 100 MG TAB PO SCH (08:07)
[2016-09-28] MEDS: LITHIUM CARBONATE 300 MG TAB PO SCH (08:07)
[2016-09-28] MEDS: CIPROFLOXACIN 500 MG TAB PO SCH (08:07)
[2016-09-28] MEDS: NICOTINE 21 MG/24 HR PATCH T-DERMAL SCH (08:07)
[2016-09-28] MEDS ORDERED: LURA40 PO (12:24)
[2016-09-28] MEDS ORDERED: TOPA100T11 PO (12:24)
[2016-09-28] MEDS ORDERED: CIPR-9 PO (12:24)
[2016-09-28] MEDS ORDERED: LITH300T3 PO (12:24)
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
[2016-10-16] MEDS ORDERED: PALI234P IM (11:27)
[2016-10-16] MEDS ORDERED: BREX1TAB6 PO (11:27)
== END 2016-09-28 12:50 | DRG 885 ==
LOC: NEPA 22:13 → H260 09-14 08:36 → H270 09-14 20:41 → H260 09-14 20:47 → H270 09-22 07:11
PROVIDERS: ADMIT Psychiatry & Neurology Psychiatry; ATTEND Psychiatry & Neurology Psychiatry
DX: F25.1 Schizoaffective disorder, depressive type (principal); E11.9 Type 2 diabetes mellitus without complications; F41.1 Generalized anxiety disorder; Z85.41 Personal history of malignant neoplasm of cervix uteri; F17.210 Nicotine dependence, cigarettes, uncomplicated
CPT/HCPCS: 80048; 80053; 80061; 80178; 80307; 80320; 81001; 83036; 84703; 85025; 87086; 99284; Q0163

== ENCOUNTER 2016-10-02 13:09 | Emergency (ER) | payer MEDICAID, OTHER ==
[~2016-10-02] VITALS: Ht 160 cm; Wt 85.0 kg
[~2016-10-02 13:09] MED LIST changes: -ABIL5TAB6 PO; +CIPR-9 PO; -LITH150C PO; +LITH300T3 PO; +LURA40 PO
[2016-10-02 13:11] VITALS: BP 136/69; PULSE 88; RESP 17; TEMP 98.2; O2SAT 98
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
[2016-10-02] MEDS ORDERED: AZITHROMYCIN PWD FOR SUSP 1 GM PACKET PO ONE (16:15)
[2016-10-02] MEDS ORDERED: cefTRIAXone 250 MG VIAL IM ONE (16:15)
[2016-10-02] MEDS ORDERED: metroNIDAZOLE 500 MG TAB PO ONE (16:15)
[2016-10-02] MEDS ORDERED: LIDOCAINE HCL 1% 50 ML VIAL IM ONE (16:15)
[2016-10-02] MEDS ORDERED: LEVONORGESTREL (EMERGENCY OC) 1.5 MG TAB PO ONE (16:15)
[2016-10-16] MEDS ORDERED: PALI234P IM (11:27)
[2016-10-16] MEDS ORDERED: BREX1TAB6 PO (11:27)
== END 2016-10-02 17:14 | disposition home or self-care (01) ==
LOC: NEPB 13:09
DX: T76.21XA Adult sexual abuse, suspected, initial encounter (principal); F17.200 Nicotine dependence, unspecified, uncomplicated; Z86.59 Personal history of other mental and behavioral disorders
CPT/HCPCS: 96372; 99284; J0696

== ENCOUNTER 2016-11-11 21:12 | Emergency (ER) | payer MEDICAID, OTHER ==
[~2016-11-11] VITALS: Ht 160 cm; Wt 85.0 kg
[~2016-11-11 21:12] MED LIST changes: +BREX1TAB6 PO; -CIPR-9 PO; -LITH300T3 PO; -LURA40 PO; +PALI234P IM
[2016-11-11 21:34] VITALS: BP 124/88; PULSE 51; RESP 18; TEMP 98.6; O2SAT 96
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
[2016-11-11 21:58] LABS: AUTOMATED NEUTROPHIL # 3.7 TH/MM3 (1.8-7.7); BASOPHIL # 0.1 TH/MM3 (0-0.2); BASOPHIL % 0.8 % (0.0-2.0); EOSINOPHIL # 0.2 TH/MM3 (0-0.4); EOSINOPHIL % 2.7 % (0.0-4.0); HEMATOCRIT 41.5 % (35.0-46.0); HEMO FLAGS DIFF FINAL; LYMPH % 47.2 % (9.0-44.0); LYMPHOCYTE # 4.1 TH/MM3 (1.0-4.8); MEAN CELL VOLUME 86.1 FL (80.0-100.0); MEAN CORPUSCULAR HGB CONC 34.8 % (32.0-36.0); MONO % 6.9 % (0.0-8.0); NEUT % 42.4 % (16.0-70.0); PLATELET COUNT 229 TH/MM3 (150-450); RED BLOOD COUNT 4.82 MIL/MM3 (4.00-5.30); RED CELL DISTRIBUTION WIDTH 13.2 % (11.6-17.2); WHITE BLOOD COUNT 8.7 TH/MM3 (4.0-11.0)
[2016-11-11 22:03] LABS: AMPHETAMINE, URINE NEG (NEG); BARBITURATES, URINE NEG (NEG); COCAINE, URINE NEG (NEG)
[2016-11-11 22:27] LABS: ANION GAP 8 MEQ/L (5-15)
[2016-11-11 22:30] LABS: ALKALINE PHOSPHATASE 63 U/L (45-117); ALT (GPT) 24 U/L (10-53); AST (GOT) 16 U/L (15-37); BICARBONATE 24.1 MEQ/L (21.0-32.0); BLOOD UREA NITROGEN 11 MG/DL (7-18); CHLORIDE 108 MEQ/L (98-107); GLOMERULAR FILTRATION RATE 90 ML/MIN (>89); POTASSIUM 3.8 MEQ/L (3.5-5.1); SODIUM (NA) 140 MEQ/L (136-145); TOTAL BILIRUBIN ADULT 0.2 MG/DL (0.2-1.0)
[2016-11-12] MEDS ORDERED: ACETAMINOPHEN 325 MG TAB PO ONE (00:30)
[2016-11-12 06:00] VITALS: BP 126/69; PULSE 78; RESP 18; O2SAT 96
[2016-11-12 09:00] VITALS: BP 138/75; PULSE 77; RESP 16; O2SAT 97
[2016-11-12 10:47] VITALS: BP 112/83; PULSE 75; RESP 20; O2SAT 98
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
== END 2016-11-12 17:24 | disposition home or self-care (01) ==
LOC: NEPD 21:12 → NEPJ 11-12 17:24
DX: F25.0 Schizoaffective disorder, bipolar type (principal); F17.200 Nicotine dependence, unspecified, uncomplicated; Z86.59 Personal history of other mental and behavioral disorders
CPT/HCPCS: 80053; 80307; 84703; 85025; 99284

== ENCOUNTER 2016-12-21 15:52 | Inpatient (IN) | payer OTHER ==
[~2016-12-21] VITALS: Ht 167.6 cm; Wt 82.9 kg
[2016-12-21] MEDS ORDERED: HALO5TAB PO (17:34)
--- NOTE | 2016-12-21 18:29 | PD ---
HPI Chief Complaint: Psychiatric Symptoms Time Seen by Provider: 18:17 Travel History International Travel<30 days: No Contact w/Intl Traveler<30days: No Traveled to known affect area: No History of Present Illness HPI 36-year-old female with history of schizophrenia presents under Rodriguez act initiated by the Police Department. The patient reports that the assisted living facility that she lives and is making her feel "unstable." She reports that she is currently on her menstrual period and this is causing her "hormones to be off" and today she was feeling like stepping into traffic. She reports that she decided to approach a police car and she told them that she was feeling suicidal. He placed her under Rodriguez act. Upon examination she is feeling more calm and she no longer wants to step in front of traffic. She has no medical complaints at this time. PFSH Past Medical History Hx Anticoagulant Therapy: No Cancer: No Cardiovascular Problems: No Chemotherapy: No Cerebrovascular Accident: No Diabetes: No Diminished Hearing: No Endocrine: Yes (HYPOGLYCEMIA) Genitourinary: No Headaches: No Immune Disorder: No Psychiatric: Yes Reproductive: No Respiratory: No Immunizations Current: Yes Schizophrenia: Yes Seizures: Yes Tetanus Vaccination: Unknown Influenza Vaccination: No ?: Not LMP: 12/20/16 Menopausal: No : 3 Para: 1 Miscarriage: 0 : 2 Dilation and Curettage (D&C): Yes Past Surgical History Gynecologic Surgery: Yes (2004 [facility]) Hysterectomy: No Other Surgery: Yes (LEEP) Social History Alcohol Use: Yes (DRANK 2 BEERS TODAY) Tobacco Use: Yes (1/2PPD) Substance Use: No Allergies-Medications (Allergen,Severity, Reaction): Coded Allergies: Naproxen (Unverified Allergy, Severe, SWELLING, 12/21/16) Zyprexa (Unverified Allergy, Severe, SWELLING, 12/21/16) Zoloft (Verified Allergy, Mild, CONFUSED, 12/21/16) Reported Meds & Prescriptions Reported Meds & Active Scripts Active Topamax (Topiramate) 100 Mg Tab 100 Mg PO BID 15 Days Reported Haloperidol 5 Mg Tab 5 Mg PO DAILY Invega Sustenna Inj (Paliperidone Palmitate) 234 Mg/1.5 Ml Inj 256 Mg IM ONCE Review of Systems Except as stated in HPI: all other systems reviewed are Neg Physical Exam Narrative GENERAL: Well-developed well-nourished female in no acute distress SKIN: Warm and dry. HEAD: Atraumatic. Normocephalic. EYES: Pupils equal and round. No scleral icterus. No injection or drainage. ENT: No nasal bleeding or discharge. Mucous membranes pink and moist. NECK: Trachea midline. No JVD. CARDIOVASCULAR: Regular rate and rhythm. No murmur appreciated. RESPIRATORY: No accessory muscle use. Clear to auscultation. Breath sounds equal bilaterally. GASTROINTESTINAL: Abdomen soft, non-tender, nondistended. Hepatic and splenic margins not palpable. MUSCULOSKELETAL: No obvious deformities. No edema. NEUROLOGICAL: Awake and alert. No obvious cranial nerve deficits. Motor grossly within normal limits. Normal speech. PSYCHIATRIC: Disorganized thought pattern. Insight and judgment are limited. Data Data Orders Complete Blood Count With Diff (12/21/16 18:24) Comprehensive Metabolic Panel (12/21/16 18:24) Ed Urine Pregnancytest Poc (12/21/16 18:24) Psych Screen (12/21/16 18:24) Drug Screen, Random Urine (12/21/16 18:24) Labs Laboratory Tests Test 12/21/16 18:48 White Blood Count 9.1 TH/MM3 Red Blood Count 4.85 MIL/MM3 Hemoglobin 14.5 GM/DL Hematocrit 41.5 % Mean Corpuscular Volume 85.6 FL Mean Corpuscular Hemoglobin 29.9 PG Mean Corpuscular Hemoglobin 34.9 % Concent Red Cell Distribution Width 12.7 % Platelet Count 226 TH/MM3 Mean Platelet Volume 8.2 FL Neutrophils (%) (Auto) 45.6 % Lymphocytes (%) (Auto) 45.8 % Monocytes (%) (Auto) 4.5 % Eosinophils (%) (Auto) 3.6 % Basophils (%) (Auto) 0.5 % Neutrophils # (Auto) 4.1 TH/MM3 Lymphocytes # (Auto) 4.2 TH/MM3 Monocytes # (Auto) 0.4 TH/MM3 Eosinophils # (Auto) 0.3 TH/MM3 Basophils # (Auto) 0.0 TH/MM3 CBC Comment DIFF FINAL Differential Comment Sodium Level 139 MEQ/L Potassium Level 4.2 MEQ/L Chloride Level 109 MEQ/L Carbon Dioxide Level 22.3 MEQ/L Anion Gap 8 MEQ/L Blood Urea Nitrogen 6 MG/DL Creatinine 0.59 MG/DL Estimat Glomerular Filtration 117 ML/MIN Rate Random Glucose 83 MG/DL Calcium Level 8.6 MG/DL Total Bilirubin 0.3 MG/DL Aspartate Amino Transf 18 U/L (AST/SGOT) Alanine Aminotransferase 20 U/L (ALT/SGPT) Alkaline Phosphatase 61 U/L Total Protein 7.6 GM/DL Albumin 3.7 GM/DL Urine Opiates Screen NEG Urine Barbiturates Screen NEG Urine Amphetamines Screen NEG Urine Benzodiazepines Screen NEG Urine Cocaine Screen NEG Urine Cannabinoids Screen NEG MDM Medical Decision Making Medical Screen Exam Complete: Yes Emergency Medical Condition: Yes Medical Record Reviewed: Yes Differential Diagnosis Schizophrenia, acute psychosis, substance induced mood disorder, adjustment reaction Narrative Course This is a 36-year-old female who presents under Rodriguez act for psychiatric evaluation. Mental health screening discussed with the patient. Psychiatric screen ordered. Labwork is unremarkable. The patient is medically cleared for psychiatric disposition. Diagnosis Primary Impression: Medical clearance for psychiatric admission Escobar Krishna Dec 21, 2016 18:28
[2016-12-21 19:11] LABS: AUTOMATED NEUTROPHIL # 4.1 TH/MM3 (1.8-7.7); BASOPHIL % 0.5 % (0.0-2.0); EOSINOPHIL # 0.3 TH/MM3 (0-0.4); EOSINOPHIL % 3.6 % (0.0-4.0); HEMATOCRIT 41.5 % (35.0-46.0); HEMO FLAGS DIFF FINAL; LYMPH % 45.8 % (9.0-44.0); LYMPHOCYTE # 4.2 TH/MM3 (1.0-4.8); MEAN CELL VOLUME 85.6 FL (80.0-100.0); MEAN CORPUSCULAR HEMOGLOBIN 29.9 PG (27.0-34.0); MEAN CORPUSCULAR HGB CONC 34.9 % (32.0-36.0); MONO % 4.5 % (0.0-8.0); NEUT % 45.6 % (16.0-70.0); PLATELET COUNT 226 TH/MM3 (150-450); RED BLOOD COUNT 4.85 MIL/MM3 (4.00-5.30); RED CELL DISTRIBUTION WIDTH 12.7 % (11.6-17.2); WHITE BLOOD COUNT 9.1 TH/MM3 (4.0-11.0)
[2016-12-21 19:20] LABS: AMPHETAMINE, URINE NEG (NEG); BARBITURATES, URINE NEG (NEG); COCAINE, URINE NEG (NEG)
[2016-12-21 19:34] LABS: ALT (GPT) 20 U/L (10-53)
[2016-12-21 19:36] LABS: ALKALINE PHOSPHATASE 61 U/L (45-117); TOTAL BILIRUBIN ADULT 0.3 MG/DL (0.2-1.0)
[2016-12-21 20:00] LABS: ANION GAP 8 MEQ/L (5-15); AST (GOT) 18 U/L (15-37); BICARBONATE 22.3 MEQ/L (21.0-32.0); BLOOD UREA NITROGEN 6 MG/DL (7-18); CHLORIDE 109 MEQ/L (98-107); GLOMERULAR FILTRATION RATE 117 ML/MIN (>89); POTASSIUM 4.2 MEQ/L (3.5-5.1); SODIUM (NA) 139 MEQ/L (136-145)
[2016-12-22 07:39] VITALS: BP 103/58; PULSE 54; RESP 16; O2SAT 98
[2016-12-22 11:37] VITALS: BP 137/76; PULSE 76; RESP 16; O2SAT 98
[2016-12-22] MEDS ORDERED: diphenhydrAMINE HCL 50 MG CAP PO PRN (16:15)
[2016-12-22] MEDS ORDERED: ALUMINUM/MAGNESIUM/SIMETH 30 ML CUP PO PRN (16:15)
[2016-12-22] MEDS ORDERED: LORazepam 0.5 MG TAB PO PRN (16:15)
[2016-12-22] MEDS ORDERED: MAGNESIUM HYDROXIDE SUSP 30 ML CUP PO PRN (16:15)
[2016-12-22] MEDS ORDERED: LORazepam 2 MG/ML VIAL IM PRN ×2 (16:15)
[2016-12-22] MEDS ORDERED: diphenhydrAMINE HCL 50 MG/ML VIAL IM PRN (16:15)
[2016-12-22] MEDS ORDERED: ACETAMINOPHEN 325 MG TAB PO PRN (16:15)
--- NOTE | 2016-12-22 16:26 | HHI.HP ---
Provisional Diagnosis Admission Date Sherrill I. Schizoaffective, bipolar type Certification of Person's Competence To Provide Express and Informed Consent I have personally examined Bernie Bishop , a person being served at [facility] on, Dec 22, 2016 16:14. Express and informed consent means consent voluntarily given in writing, by a competent person, after sufficient explanation and disclosure of the subject matter involved to enable the person to make a knowing and willful decision without any element of force, fraud, deceit, duress, or other form of constraint or coercion. This person is 18 years of age or older, is not now known to be incompetent to consent to treatment with a guardian advocate, and does not have a health care surrogate or proxy currently making medical treatment decisions. I have found this person to be one of the following: [X] Competent to provide express and informed consent, as defined above, for voluntary admission to this facility and is competent to provide express and informed consent for treatment. He/she has the consistent capacity to make well reasoned, willful, and knowing decisions concerning his or her medical or mental health treatment. The person fully and consistently understands the purpose of the admission for examination/placement and is fully capable of personally exercising all rights assured [place] Incompetent to provide express and informed consent to voluntary admission, and this is incompetent to provide express and informed consent to treatment. The person must be transferred to involuntary status and a petition for a guardian advocate filed with the Circuit Court. [] Refusing to provide express and informed consent to voluntary admission but is competent to provide express and informed consent for treatment. The person must be discharged or transferred to involuntary status. Form shall be completed within 24 hours of a person's arrival at the receiving facility and filed in the clinical record of each person: 1. Admitted on a voluntary basis 2. Permitted to provide express and informed consent to his/her own treatment 3. Allowed to transfer from involuntary to voluntary status 4. Prior to permitting a person to consent to his or her own treatment after having been previously found incompetent to consent to treatment. History of Present Illness Capacity: Has Capacity HPI This is a 36-year-old female with a long history of schizoaffective disorder, Rodriguez acted by law enforcement for unsafe behavior. According to the Rodriguez act , the patient walked up to the law enforcement officers patrol car and indicated she wanted to kill herself. She stated she did not want to live the way she was living. She further indicated she was terrified and wanted to jump in front of traffic. Upon interview by this physician, the patient was very loud, hyperverbal, expansive and manic, waving her arms and exclaiming to this physician "I jumped in front of the cars. I wanted to tell them I'm not crazy." She has little or no insight that jumping in front of random automobiles was dangerous. She acknowledged the [facility] report written by police. She is unable to provide an explanation as to why she feels the way she does. However, she states she was running out in front of cars at her adult living facility and could not help herself. She got off the hospital emergency department bed at this time and began waving her arms and legs and smiling inappropriately. She admits to a diagnosis of schizoaffective disorder and states that she takes Haldol for treatment. She is usually followed at [facility]. Her compliance with medications is suspect and she will not answer questions regarding drug abuse. However, she remains highly dangerous to self as she is unable to determine the dangerousness of her behavior. Review of Systems Except as stated in HPI: all other systems reviewed are Neg Past Psych History Psychological trauma history Denied for psychological trauma. However the patient knows her diagnosis is schizoaffective disorder, bipolar type. She is also aware that she is treated at [facility]. Violence risk - others (6 mos) Although she is not purposely violent others she is certainly dangerous to others by running out in front of traffic. Violence risk - self (6 mos) Risk to self is considered high as the patient has no good explanation for her markedly impaired judgment and actions. Substance Abuse History Drugs/Alcohol past 12 months Denied Past Family Social History Coded Allergies: Naproxen (Unverified Allergy, Severe, SWELLING, 12/21/16) Zyprexa (Unverified Allergy, Severe, SWELLING, 12/21/16) Zoloft (Verified Allergy, Mild, CONFUSED, 12/21/16) Active Scripts Topiramate (Topamax)100 Mg [id number] Mg PO BID 15 Days Ref 1 Prov:Angelo Regan MD 3/20/17 Reported Medications Haloperidol 5 Mg Tab5 Mg PO DAILY Ref 0 12/21/16 Paliperidone Palmitate Inj (Invega Sustenna Inj)234 Mg/1.5 Ml [id number] Mg IM ONCE #1 VIAL Ref 0 10/16/16 Discontinued Reported Medications Brexpiprazole (Rexulti)4 Mg Tab4 Mg PO DAILY 10/16/16 Current Medications Medications (Trade) Dose Ordered Sig/Carol Route Start Time Stop Time Status Last Admin (Ativan) 1 mg Q6H PRN PO 12/22/16 16:15 UNV (Ativan Inj) 1 mg Q6H PRN IM 12/22/16 16:15 UNV (Ativan) 0.5 mg Q12H PRN PO 12/22/16 16:15 UNV (Ativan Inj) 0.5 mg Q12H PRN IM 12/22/16 16:15 UNV (Benadryl) 50 mg Q6H PRN PO 12/22/16 16:15 UNV (Benadryl Inj) 50 mg Q6H PRN IM 12/22/16 16:15 UNV (Tylenol) 650 mg Q4H PRN PO 12/22/16 16:15 UNV (Milk Of Magnesia Liq) 30 ml DAILY PRN PO 12/22/16 16:15 UNV (Mag-Al Plus Susp Liq) 30 ml Q6H PRN PO 12/22/16 16:15 UNV (Desyrel) 50 mg HS PRN PO 12/22/16 16:15 UNV Family History Patient reports a family history of psychotic mental illness. Social History Patient is not employed. She lives in an adult living facility. She denies any recent use of alcohol or drugs. She does receive disability. Patient's Strengths (min. 2) Verbal and resilient. Physical Exam GENERAL: SKIN: Warm and dry. HEAD: Normocephalic. EYES: No scleral icterus. No injection or drainage. NECK: Supple, trachea midline. No JVD or lymphadenopathy. CARDIOVASCULAR: Regular rate and rhythm without murmurs, gallops, or rubs. RESPIRATORY: Breath sounds equal bilaterally. No accessory muscle use. GASTROINTESTINAL: Abdomen soft, non-tender, nondistended. MUSCULOSKELETAL: No cyanosis, or edema. BACK: Nontender without obvious deformity. No CVA tenderness. Vital Signs Vital Signs Date Time Temp Pulse Resp B/P Pulse Ox O2 Delivery O2 Flow Rate FiO2 12/22/16 11:37 76 16 137/76 98 Room Air Mental Status Examination Speech: Rapid Orientation: x3 Memory: Unremarkable Thought Process: Circumstantial, Flight of Ideas, Loose Association, Tangential Thought Content: Bizarre thinking, Ideas of Reference Hallucination Type: None Attention and Concentration: Easily Distracted Suicidal Ideation: Yes Previous Suicide Attempts: No Homicidal Ideation: No Previous Homicide Attempts: No Insight: Poor Judgment: Unrealistic Affect: Other Affect if Inappropriate: Labile Mood: Manic Motor Activity: Normal gait Assessment & Plan Problem List: (1) Schizoaffective disorder, bipolar type ICD Code: F25.0 Assessment & Plan Estimated LOS: 7 days this is a 36-year-old female with a known history of schizoaffective disorder, bipolar type, who has decompensated to the point of psychosis, suicidal ideation and dangerous behavior of running in front of cars. She is not thinking rationally and wants to stop cars to tell them she is not crazy. She reportedly told the criminal defense lawyer who Rodriguez acted her that she is suicidal. She is very expansive, flamboyant, easily agitated and inappropriate with this physician. Patient will be admitted under the Rodriguez act but appears to be competent to sign for voluntary treatment. This physician did order a second opinion regarding the patient's psychiatric status and competency. She is also receiving multiple lab work including a CBC, thyroid testing, lipid panels and comprehensive metabolic profile. Patient is overweight and this physician does not wish to aggravate her lipids or metabolic 's with antipsychotic medicine. Furthermore, this physician wishes to evaluate her cardiac conduction system before utilizing antipsychotics that may disrupt her cardiac conduction. Additionally, she is getting random urine drug testing to determine if this has incited her psychosis. Furthermore, she is being placed back on her Haldol for now. This physician spoke with the patient's nurse at length regarding her psychotic behavior. Finally, this physician will ask the marketing analytics specialist to obtain further history from the [facility] and Atif Bhatia. Pranav Marcano MD Dec 22, 2016 16:26
[2016-12-22] MEDS: HALOPERIDOL 5 MG TAB PO SCH (16:30)
[2016-12-22 17:10] VITALS: BP 102/56; PULSE 77; RESP 18; TEMP 97.6; O2SAT 97
[2016-12-22] MEDS: TOPIRAMATE 100 MG TAB PO SCH (21:30)
[2016-12-23 05:46] VITALS: BP 87/52; PULSE 63; RESP 18; TEMP 97.8; O2SAT 97
--- NOTE | 2016-12-23 07:48 | EKG ---
Date Performed: 12/23/2016 Time Performed: 07:11:59 PTAGE: 36 years EKG: Sinus rhythm NORMAL ECG NO SIGNIFICANT CHANGE FROM PRIOR ELECTROCARDIOGRAM. PREVIOUS TRACING : 09/03/2016 00.35 DOCTOR: Kale Dickey Interpretating Date/Time 12/23/2016 07:47:04
[2016-12-23] MEDS: HALOPERIDOL 5 MG TAB PO SCH ×2 (08:25→20:21)
[2016-12-23] MEDS: TOPIRAMATE 100 MG TAB PO SCH ×2 (08:25→20:21)
[2016-12-23 10:11] LABS: AUTOMATED NEUTROPHIL # 5.8 TH/MM3 (1.8-7.7); BASOPHIL % 0.3 % (0.0-2.0); EOSINOPHIL # 0.3 TH/MM3 (0-0.4); HEMATOCRIT 43.1 % (35.0-46.0); HEMO FLAGS DIFF FINAL; LYMPH % 24.9 % (9.0-44.0); LYMPHOCYTE # 2.1 TH/MM3 (1.0-4.8); MEAN CELL VOLUME 85.5 FL (80.0-100.0); MEAN CORPUSCULAR HEMOGLOBIN 29.7 PG (27.0-34.0); MEAN CORPUSCULAR HGB CONC 34.8 % (32.0-36.0); MONO % 3.7 % (0.0-8.0); NEUT % 68.1 % (16.0-70.0); PLATELET COUNT 239 TH/MM3 (150-450); RED BLOOD COUNT 5.04 MIL/MM3 (4.00-5.30); WHITE BLOOD COUNT 8.5 TH/MM3 (4.0-11.0)
[2016-12-23 10:42] LABS: ANION GAP 10 MEQ/L (5-15); AST (GOT) 9 U/L (15-37); BLOOD UREA NITROGEN 13 MG/DL (7-18); CHLORIDE 107 MEQ/L (98-107); GLOMERULAR FILTRATION RATE 106 ML/MIN (>89); POTASSIUM 4.1 MEQ/L (3.5-5.1); SODIUM (NA) 140 MEQ/L (136-145)
[2016-12-23 11:09] LABS: ALKALINE PHOSPHATASE 63 U/L (45-117); ALT (GPT) 20 U/L (10-53); HDL CHOLESTEROL 44.7 MG/DL (40.0-60.0); LDL CHOLESTEROL 70 MG/DL (0-99); TOTAL BILIRUBIN ADULT 0.2 MG/DL (0.2-1.0)
[2016-12-23] MEDS: NICOTINE 21 MG/24 HR PATCH T-DERMAL SCH (11:30)
[2016-12-23] MEDS ORDERED: ALUMINUM/MAGNESIUM/SIMETH 30 ML CUP PO PRN (11:30)
[2016-12-23] MEDS ORDERED: ACETAMINOPHEN 325 MG TAB PO PRN (11:30)
[2016-12-23] MEDS ORDERED: diphenhydrAMINE HCL 50 MG CAP PO PRN (11:30)
[2016-12-23] MEDS ORDERED: MAGNESIUM HYDROXIDE SUSP 30 ML CUP PO PRN (11:30)
--- NOTE | 2016-12-23 11:32 | HHI.PYPN ---
Subjective Remarks Patient seen in [place] with nurse Alvaro and family practice resident Tobi, chart review, patient was initially admitted by Dr. Marcano. Under the Rodriguez act. Though no first opinion was initiated. My assessment patient I feel patient does meet criteria for involuntary psychiatric hospitalization thus I will initiate first opinion petition supporting Rodriguez act requests second opinion. Patient today shows marked intense grandiose attitude with hypersexual comments such as referring to older men in how they would think her "pussy" was "magical ". She is vague about compliance with medication. Disorder vague about her willingness to return to [facility]. She does acknowledge being a member of the fact team patient. Patient does denies suicidality at this time. Denies voices though she appears to be responding to internal stimuli. For now continue medication, will increase Haldol to 5 mg twice a day Review of Systems Except as stated in HPI: all other systems reviewed are Neg Objective Alert: Yes [place]: Person, Place, Date Mood: Happy Affect: Manic Memory Intact: Comment (fair) Hallucinations: Other (denies appears to be responding to internal stimuli) Delusions: Yes Delusion Type: Grandiose Suicidal: Ideation (denies) Homicidal: Ideation (denies) Insight/Judgment Very poor Labs Test 12/23/16 09:55 White Blood Count 8.5 TH/MM3 Red Blood Count 5.04 MIL/MM3 Hemoglobin 15.0 GM/DL Hematocrit 43.1 % Mean Corpuscular Volume 85.5 FL Mean Corpuscular Hemoglobin 29.7 PG Mean Corpuscular Hemoglobin 34.8 % Concent Red Cell Distribution Width 13.0 % Platelet Count 239 TH/MM3 Mean Platelet Volume 7.9 FL Neutrophils (%) (Auto) 68.1 % Lymphocytes (%) (Auto) 24.9 % Monocytes (%) (Auto) 3.7 % Eosinophils (%) (Auto) 3.0 % Basophils (%) (Auto) 0.3 % Neutrophils # (Auto) 5.8 TH/MM3 Lymphocytes # (Auto) 2.1 TH/MM3 Monocytes # (Auto) 0.3 TH/MM3 Eosinophils # (Auto) 0.3 TH/MM3 Basophils # (Auto) 0.0 TH/MM3 CBC Comment DIFF FINAL Differential Comment Sodium Level 140 MEQ/L Potassium Level 4.1 MEQ/L Chloride Level 107 MEQ/L Carbon Dioxide Level 23.0 MEQ/L Anion Gap 10 MEQ/L Blood Urea Nitrogen 13 MG/DL Creatinine 0.64 MG/DL Estimat Glomerular Filtration 106 ML/MIN Rate Random Glucose 96 MG/DL Calcium Level 9.2 MG/DL Total Bilirubin 0.2 MG/DL Aspartate Amino Transf 9 U/L (AST/SGOT) Alanine Aminotransferase 20 U/L (ALT/SGPT) Alkaline Phosphatase 63 U/L Total Protein 7.8 GM/DL Albumin 3.8 GM/DL Triglycerides Level 102 MG/DL Cholesterol Level 135 MG/DL LDL Cholesterol 70 MG/DL HDL Cholesterol 44.7 MG/DL Cholesterol/HDL Ratio 3.02 RATIO Vitamin B12 Level 284 PG/ML Thyroid Stimulating Hormone 0.556 uIU/ML 3rd Gen Vitals/IOs Vital Signs Date Time Temp Pulse Resp B/P Pulse Ox O2 Delivery O2 Flow Rate FiO2 12/23/16 05:46 97.8 63 18 87/52 97 12/22/16 11:37 Room Air Assessment & Plan Problem List: (1) Schizoaffective disorder, bipolar type ICD Code: F25.0 Assessment & Plan Estimated LOS: days patient continues delusional psychotic and grandiose. Low compliant medications. See medication adjustment above Justification for Cont. Inpt. This time patient will decompensate with placed a lower level of care Discharge Planning To be determined Request HC Surrog/Guard Advoc?: No Jean Chaudhry MD Dec 23, 2016 11:32
[2016-12-23] MEDS ORDERED: PALIPERIDONE PALMITATE 234 MG/1.5 ML SYRINGE IM ONE (12:00)
[2016-12-23 16:08] LABS: HEMOGLOBIN A1b 1.6 %; HEMOGLOBIN Ao 85.9 %; HEMOGLOBIN LA1C 1.9 %; HEMOGLOBIN P3 3.4 %
[2016-12-23 18:25] VITALS: BP 108/55; PULSE 66; RESP 18; TEMP 97.5; O2SAT 100
[2016-12-23] MEDS: REMOVE OLD PATCH T-DERMAL SCH (20:22)
[2016-12-24 06:00] VITALS: BP 106/56; PULSE 84; RESP 16; TEMP 97.3; O2SAT 98
[2016-12-24] MEDS: HALOPERIDOL 5 MG TAB PO SCH ×2 (09:12→21:00)
[2016-12-24] MEDS: TOPIRAMATE 100 MG TAB PO SCH ×2 (09:12→21:00)
[2016-12-24] MEDS: NICOTINE 21 MG/24 HR PATCH T-DERMAL SCH (09:12)
[2016-12-24 11:27] LABS: ANION GAP 11 MEQ/L (5-15); BICARBONATE 23.1 MEQ/L (21.0-32.0); BLOOD UREA NITROGEN 13 MG/DL (7-18); CHLORIDE 106 MEQ/L (98-107); GLOMERULAR FILTRATION RATE 117 ML/MIN (>89); POTASSIUM 4.1 MEQ/L (3.5-5.1); SODIUM (NA) 140 MEQ/L (136-145)
[2016-12-24 11:34] LABS: HDL CHOLESTEROL 40.3 MG/DL (40.0-60.0); LDL CHOLESTEROL 67 MG/DL (0-99)
--- NOTE | 2016-12-24 11:54 | PD.CONS ---
Provisional Diagnosis Admission Date Dec 22, 2016 at 16:08 Barney I. 1. Schizoaffective disorder, bipolar type Barney II. Deferred Barney V. GAF is 37 presently History of Present Illness Service Psychiatry Consult Requested By Dr. Chaudhry Reason for Consult Second opinion for involuntary psychiatric hospitalization Primary Care Physician No Primary Care Physician HPI From Dr. De La O's H&P: This is a 36-year-old female with a long history of schizoaffective disorder, Michael acted by law enforcement for unsafe behavior. According to the Rodriguez act , the patient walked up to the law enforcement officers patrol car and indicated she wanted to kill herself. She stated she did not want to live the way she was living. She further indicated she was terrified and wanted to jump in front of traffic. Upon interview by this physician, the patient was very loud, hyperverbal, expansive and manic, waving her arms and exclaiming to this physician "I jumped in front of the cars. I wanted to tell them I'm not crazy." She has little or no insight that jumping in front of random automobiles was dangerous. She acknowledged the Rodriguez act report written by police. She is unable to provide an explanation as to why she feels the way she does. However, she states she was running out in front of cars at her adult living facility and could not help herself. She got off the hospital emergency department bed at this time and began waving her arms and legs and smiling inappropriately. She admits to a diagnosis of schizoaffective disorder and states that she takes Haldol for treatment. She is usually followed at [facility]. Her compliance with medications is suspect and she will not answer questions regarding drug abuse. However, she remains highly dangerous to self as she is unable to determine the dangerousness of her behavior. On my examination today: Patient seen and examined with nurse. Chart reviewed. Case discussed with nursing staff. On my examination today, the patient minimizes the circumstances of her presentation here. She says that she was feeling stressed out prior to coming into the hospital because she put some pictures online of friends and family and began to feel like she was being stalked as a result of this. She says of the suicidal ideation that she allegedly expressed to be officer who Rodriguez acted her, "I was just saying that." She denies any suicidal or homicidal ideation at this time. She denies any audiovisual hallucinations. No sarah delusional beliefs. Psychiatric ROS is otherwise negative. Past psychiatric history: Patient follows with the FACT team and Dr. Leon. She denies any suicide attempts. She was admitted most recently here in September of this year under my care. Family history: Patient denies a family history of mental illness. Chemical dependency history: Patient is an occasional drinker and otherwise denies substance use. Social history: Patient reports that she was recently jailed for violation of her restraining order. She resides at [facility]. She has a 12th grade education but did not graduate. She has a daughter who reportedly lives in [place]. Review of Systems ROS Limitations: Poor Historian Except as stated in HPI: all other systems reviewed are Neg Past Family Social History Coded Allergies: Naproxen (Unverified Allergy, Severe, SWELLING, 12/21/16) Zyprexa (Unverified Allergy, Severe, SWELLING, 12/21/16) Zoloft (Verified Allergy, Mild, CONFUSED, 12/21/16) Past Medical History See electronic medical record Active Scripts Topiramate (Topamax)100 Mg [id number] Mg PO BID 15 Days Ref 1 Prov:Angelo Regan MD 09/28/16 Reported Medications Haloperidol 5 Mg Tab5 Mg PO DAILY Ref 0 12/21/16 Paliperidone Palmitate Inj (Invega Sustenna Inj)234 Mg/1.5 Ml [id number] Mg IM ONCE #1 VIAL Ref 0 10/16/16 Discontinued Reported Medications Brexpiprazole (Rexulti)4 Mg Tab4 Mg PO DAILY 10/16/16 Current Medications Medications (Trade) Dose Ordered Sig/Carol Route Start Time Stop Time Status Last Admin (Ativan) 1 mg Q6H PRN PO 12/22/16 16:15 (Ativan Inj) 1 mg Q6H PRN IM 12/22/16 16:15 (Ativan) 0.5 mg Q12H PRN PO 12/22/16 16:15 (Ativan Inj) 0.5 mg Q12H PRN IM 12/22/16 16:15 (Benadryl) 50 mg Q6H PRN PO 12/22/16 16:15 (Benadryl Inj) 50 mg Q6H PRN IM 12/22/16 16:15 (Tylenol) 650 mg Q4H PRN PO 12/22/16 16:15 (Milk Of Magnesia Liq) 30 ml DAILY PRN PO 12/22/16 16:15 (Mag-Al Plus Susp Liq) 30 ml Q6H PRN PO 12/22/16 16:15 (Desyrel) 50 mg HS PRN PO 12/22/16 16:15 (Topamax) 100 mg BID PO 12/22/16 21:00 12/24/16 09:12 (Benadryl) 50 mg HS PRN PO 12/23/16 11:30 (Tylenol) 650 mg Q4H PRN PO 12/23/16 11:30 (Milk Of Magnesia Liq) 30 ml DAILY PRN PO 12/23/16 11:30 (Mag-Al Plus Susp Liq) 30 ml Q6H PRN PO 12/23/16 11:30 (Habitrol 21 Mg Patch.24 Hr) 1 patch DAILY T-DERMAL 12/23/16 11:30 12/24/16 09:12 (Atarax) 50 mg Q6H PRN PO 12/23/16 11:30 Miscellaneous Information 1 HS T-DERMAL 12/23/16 21:00 12/23/16 20:22 (Haldol) 5 mg BID PO 12/23/16 21:00 12/24/16 09:12 Family History See above Social History See above Patient's Strengths (min. 2) Verbally fluent. In a monitored setting. Physical Exam Physical exam completed by ED provider. On my examination today, the patient appears to be in no acute physical distress. No motor abnormalities noted. Laboratories and vital signs reviewed: Vital Signs Vital Signs Date Time Temp Pulse Resp B/P Pulse Ox O2 Delivery O2 Flow Rate FiO2 12/24/16 06:00 97.3 84 16 106/56 98 12/22/16 11:37 Room Air Lab Results Item Value Date Time White Blood Count 8.5 TH/MM3 12/23/16 0955 Hemoglobin 15.0 GM/DL 12/23/16 0955 Platelet Count 239 TH/MM3 12/23/16 0955 Sodium Level 140 MEQ/L 12/24/16 0913 Potassium Level 4.1 MEQ/L 12/24/16 0913 Chloride Level 106 MEQ/L 12/24/16912 Carbon Dioxide Level 23.1 MEQ/L 12/24/16912 Blood Urea Nitrogen 13 MG/DL 12/24/16912 Creatinine 0.59 MG/DL 12/24/16912 Random Glucose 89 MG/DL 12/24/16912 Aspartate Amino Transf (AST/SGOT) 9 U/L L 12/23/16954 Alanine Aminotransferase (ALT/SGPT) 20 U/L 12/23/16954 Alkaline Phosphatase 63 U/L 12/23/16954 25-Hydroxy Vitamin D Total 19.8 ng/ML L 12/23/16954 Thyroid Stimulating Hormone 3rd Gen 0.556 uIU/ML 12/23/16954 Vitamin B12 Level 284 PG/ML 12/23/16954 Urine toxicology negative. Mental Status Examination Speech: Pressured Orientation: x3 Memory: Unremarkable Thought Process: Circumstantial Thought Content: Bizarre thinking Hallucination Type: None Attention and Concentration: Easily Distracted Suicidal Ideation: No Previous Suicide Attempts: No Homicidal Ideation: No Previous Homicide Attempts: No Insight: Poor Judgment: Poor Affect: Euthymic Mood: Euthymic Motor Activity: Normal gait Assessment & Plan Problem List: (1) Schizoaffective disorder, bipolar type ICD Code: F25.0 Assessment & Plan Given the circumstances of the patient's presentation here, her history, as well as her presentation on my examination today, I concur with Dr. Chaudhry that the patient meets criteria for involuntary psychiatric hospitalization under the Rodriguez act. I have completed the second opinion paperwork. Further care as per Dr. Chaudhry. Thank you very much for this consultation. Signing off. Angelo Regan MD Dec 24, 2016 11:54
--- NOTE | 2016-12-24 14:12 | HHI.PYPN ---
Subjective Remarks Patient seen in her room with nurse Teri, patient continues intense with rapid pressured speech, somewhat reluctantly acknowledging racing thoughts. She denies voices though she appears to be responding to internal stimuli. She does denies suicidality. She is compliant with her medications. For now continue treatment Review of Systems Except as stated in HPI: all other systems reviewed are Neg Objective Alert: Yes [place]: Person, Place, Date Mood: Happy Affect: Manic Memory Intact: Comment (fair) Hallucinations: Other (denies appears to be responding to internal stimuli) Delusions: Yes Delusion Type: Grandiose Suicidal: Ideation (denies) Homicidal: Ideation (denies) Insight/Judgment Very poor Labs Test 12/24/16 09:13 Sodium Level 140 MEQ/L Potassium Level 4.1 MEQ/L Chloride Level 106 MEQ/L Carbon Dioxide Level 23.1 MEQ/L Anion Gap 11 MEQ/L Blood Urea Nitrogen 13 MG/DL Creatinine 0.59 MG/DL Estimat Glomerular Filtration 117 ML/MIN Rate Random Glucose 89 MG/DL Calcium Level 9.2 MG/DL Triglycerides Level 135 MG/DL Cholesterol Level 134 MG/DL LDL Cholesterol 67 MG/DL HDL Cholesterol 40.3 MG/DL Cholesterol/HDL Ratio 3.32 RATIO Vitals/IOs Vital Signs Date Time Temp Pulse Resp B/P Pulse Ox O2 Delivery O2 Flow Rate FiO2 12/24/16 06:00 97.3 84 16 106/56 98 12/22/16 11:37 Room Air Assessment & Plan Problem List: (1) Schizoaffective disorder, bipolar type ICD Code: F25.0 Assessment & Plan Estimated LOS: days patient continues delusional and psychotic, is somewhat elevated mood. For now continue treatment Justification for Cont. Inpt. At this time patient will decompensate the placed a lower level of care Discharge Planning To be determined Request HC Surrog/Guard Advoc?: No Jean Chaudhry MD Dec 24, 2016 14:12
[2016-12-24] MEDS: hydrOXYzine HCL 50 MG TAB PO PRN (15:01)
[2016-12-24 16:36] LABS: HEMOGLOBIN A1b 1.6 %; HEMOGLOBIN LA1C 1.9 %; HEMOGLOBIN P3 3.4 %
[2016-12-24 17:01] VITALS: BP 113/71; PULSE 74; RESP 18; TEMP 96.5; O2SAT 97
[2016-12-24] MEDS: REMOVE OLD PATCH T-DERMAL SCH (21:00)
[2016-12-25 05:40] VITALS: BP 96/56; PULSE 66; RESP 18; TEMP 98; O2SAT 97
[2016-12-25] MEDS: NICOTINE 21 MG/24 HR PATCH T-DERMAL SCH (08:40)
[2016-12-25] MEDS: HALOPERIDOL 5 MG TAB PO SCH ×2 (08:40→21:00)
[2016-12-25] MEDS: TOPIRAMATE 100 MG TAB PO SCH ×2 (08:40→21:13)
--- NOTE | 2016-12-25 13:43 | HHI.PYPN ---
Subjective Remarks Patient seen in her room with floor staff, chart reviewed, patient compliant medication. Patient continues somewhat labile though decreased, she is not as intrusive. She is somewhat vague about auditory hallucinations at this time. For now continue treatment Review of Systems Except as stated in HPI: all other systems reviewed are Neg Objective Alert: Yes [place]: Person, Place, Date Mood: Happy Affect: Manic Memory Intact: Comment (fair) Hallucinations: Other (denies appears to be responding to internal stimuli) Delusions: Yes Delusion Type: Grandiose Suicidal: Ideation (denies) Homicidal: Ideation (denies) Insight/Judgment Very poor Vitals/IOs Vital Signs Date Time Temp Pulse Resp B/P Pulse Ox O2 Delivery O2 Flow Rate FiO2 12/25/16 05:40 98.0 66 18 96/56 97 12/22/16 11:37 Room Air Assessment & Plan Problem List: (1) Schizoaffective disorder, bipolar type ICD Code: F25.0 Assessment & Plan Estimated LOS: days patient remained psychotic somewhat softer, compliant medications, for now continue treatment Justification for Cont. Inpt. At this time patient will decompensate to placed a lower level of care Discharge Planning To be determined Jean Chaudhry MD Dec 25, 2016 13:43
[2016-12-25] MEDS: LORazepam 1 MG TAB PO PRN ×2 (16:46→21:14)
[2016-12-25 17:32] VITALS: BP 111/75; PULSE 102; RESP 19; TEMP 97.9; O2SAT 98
[2016-12-25] MEDS: REMOVE OLD PATCH T-DERMAL SCH (21:00)
[2016-12-26 06:09] VITALS: BP 101/58; PULSE 74; RESP 16; TEMP 98.6; O2SAT 99
[2016-12-26] MEDS: HALOPERIDOL 5 MG TAB PO SCH ×2 (09:00→20:00)
[2016-12-26] MEDS: TOPIRAMATE 100 MG TAB PO SCH ×2 (09:00→20:00)
[2016-12-26] MEDS: NICOTINE 21 MG/24 HR PATCH T-DERMAL SCH (09:00)
[2016-12-26] MEDS: LORazepam 1 MG TAB PO PRN ×2 (11:17→19:59)
[2016-12-26] MEDS: hydrOXYzine HCL 50 MG TAB PO PRN ×2 (14:18→21:41)
--- NOTE | 2016-12-26 16:53 | HHI.PYPN ---
Subjective Remarks Patient was seen and case discussed with nursing. Patient has a bright affect including when she describes her suicidal ideation before admission. Mood is "good." His behaving well on the unit and has not had any outbursts. Auditory hallucinations are of her mood congruent nature and tell her "take it easy." Denies suicidal ideation intent or plan. Compliant with medications Objective Alert: Yes [place]: Person, Place, Date Mood: Happy Affect: Other (elevated) Memory Intact: Comment (fair) Hallucinations: Auditory ("take it easy/") Delusions: Yes Delusion Type: Grandiose Suicidal: Ideation (denies) Homicidal: Ideation (denies) Insight/Judgment Poor Vitals/IOs Vital Signs Date Time Temp Pulse Resp B/P Pulse Ox O2 Delivery O2 Flow Rate FiO2 12/26/16 06:09 98.6 74 16 101/58 99 12/22/16 11:37 Room Air Assessment & Plan Problem List: (1) Schizoaffective disorder, bipolar type ICD Code: F25.0 Assessment & Plan Continue current treatment plan Justification for Cont. Inpt. Patient will decompensate in a less restrictive setting Lorenzo Waldrop DO Dec 26, 2016 16:53
[2016-12-26 18:47] VITALS: BP 122/86; PULSE 98; RESP 16; TEMP 97.3; O2SAT 99
[2016-12-26] MEDS: REMOVE OLD PATCH T-DERMAL SCH (19:59)
[2016-12-27 06:13] VITALS: BP 97/58; PULSE 76; RESP 16; TEMP 97.1; O2SAT 97
[2016-12-27] MEDS: TOPIRAMATE 100 MG TAB PO SCH ×2 (08:56→21:00)
[2016-12-27] MEDS: HALOPERIDOL 5 MG TAB PO SCH ×2 (08:56→21:00)
[2016-12-27] MEDS: hydrOXYzine HCL 50 MG TAB PO PRN ×3 (08:57→22:52)
[2016-12-27] MEDS: NICOTINE 21 MG/24 HR PATCH T-DERMAL SCH (09:00)
--- NOTE | 2016-12-27 16:58 | HHI.PYPN ---
Subjective Remarks Patient was seen and case discussed with nursing. Patient is bright and cheerful during the interview. Per nursing she spends the day laughing and talking to herself. When asked about hallucinations, patient denies and smiles. Denies suicidal ideation intent or plan Objective Alert: Yes [place]: Person, Place, Date Mood: Happy Affect: Other (elevated) Memory Intact: Comment (fair) Hallucinations: Auditory (denies today) Delusions: Yes Delusion Type: Grandiose Suicidal: Ideation (denies) Homicidal: Ideation (denies) Insight/Judgment Poor Vitals/IOs Vital Signs Date Time Temp Pulse Resp B/P Pulse Ox O2 Delivery O2 Flow Rate FiO2 12/27/16 06:13 97.1 76 16 97/58 97 Assessment & Plan Problem List: (1) Schizoaffective disorder, bipolar type ICD Code: F25.0 Assessment & Plan Continue current treatment plan Justification for Cont. Inpt. Patient will decompensate and less restrictive setting Lorenzo Waldrop DO Dec 27, 2016 16:58
[2016-12-27] MEDS: REMOVE OLD PATCH T-DERMAL SCH (21:00)
[2016-12-27] MEDS: LORazepam 1 MG TAB PO PRN (21:26)
[2016-12-28] MEDS: NICOTINE 21 MG/24 HR PATCH T-DERMAL SCH (09:00)
[2016-12-28] MEDS: HALOPERIDOL 5 MG TAB PO SCH (09:00)
[2016-12-28] MEDS: TOPIRAMATE 100 MG TAB PO SCH ×2 (09:00→20:57)
--- NOTE | 2016-12-28 12:06 | HHI.PYPN ---
Subjective Remarks Patient seen in [facility] the floor staff and medical student Oscar, chart reviewed, patient compliant medication. Patient calm pleasant with me the times appears to be somewhat distracted with thought blocking. Though she denies voices. Denies suicidality. For now will continue treatment increase Haldol to 5 mg a.m. 10 mg at bedtime Review of Systems Except as stated in HPI: all other systems reviewed are Neg Objective Alert: Yes [place]: Person, Place, Date Mood: Happy Affect: Other (elevated) Memory Intact: Comment (fair) Hallucinations: Auditory (denies today) Delusions: Yes Delusion Type: Grandiose Suicidal: Ideation (denies) Homicidal: Ideation (denies) Insight/Judgment Poor Vitals/IOs Vital Signs Date Time Temp Pulse Resp B/P Pulse Ox O2 Delivery O2 Flow Rate FiO2 12/27/16 06:13 97.1 76 16 97/58 97 Assessment & Plan Problem List: (1) Schizoaffective disorder, bipolar type ICD Code: F25.0 Assessment & Plan Estimated LOS: days patient continue psychotic somewhat vigilant. See medication adjustment above Justification for Cont. Inpt. At this time patient will decompensate and placed in a lower level of care Discharge Planning To be determined Jean Chaudhry MD Dec 28, 2016 12:06
[2016-12-28] MEDS: LORazepam 1 MG TAB PO PRN ×3 (14:58→20:58)
[2016-12-28] MEDS: hydrOXYzine HCL 50 MG TAB PO PRN ×2 (15:01→20:58)
--- NOTE | 2016-12-28 15:14 | PD.TTN ---
Present for Treatment Team Treatment Team Staff: Provider (Dr. Chaudhry), Nurse (Kaylyn Menjivar RN), Psych Therapist (FRANCISCO J Patel) Patient Problems 1. Discharge planning 2. Medication compliance 3. Knowledge deficit 4. Lack of coping skills Progress Toward Goals Provider Input: Pt medication regiment will be adjusted to help assist with further stabilization. Nurse Input: Pt appears psychotic, bizarre, compliant with medication regiment, cooperative and visible on the unit. Psych Therapist Input: Pt continues to appear delusional, bizarre, to be responding to internal stimuli, seclusive to self, appropriate and organized. Pt presents with improving insight and is willing to continue with outpatient follow up services. She can return to [facility] once discharged. Documentation Scribe: FRANCISCO J Patel Date Resolved: Dec 28, 2016 Jose G Flores Dec 28, 2016 15:14
[2016-12-28] MEDS: traZODone HCL 50 MG TAB PO PRN (20:58)
[2016-12-28] MEDS: REMOVE OLD PATCH T-DERMAL SCH (21:00)
[2016-12-28] MEDS ORDERED: HALOPERIDOL 10 MG TAB PO SCH (21:00)
[2016-12-29 00:54] VITALS: BP 139/50; PULSE 98; RESP 18; TEMP 98.3; O2SAT 98
[2016-12-29 05:55] VITALS: BP 103/61; PULSE 70; RESP 18; TEMP 97.4; O2SAT 96
[2016-12-29] MEDS: TOPIRAMATE 100 MG TAB PO SCH ×2 (08:20→21:00)
[2016-12-29] MEDS: NICOTINE 21 MG/24 HR PATCH T-DERMAL SCH (08:33)
[2016-12-29] MEDS ORDERED: HALOPERIDOL 5 MG TAB PO SCH (09:00)
--- NOTE | 2016-12-29 10:14 | HHI.PYPN ---
Subjective Remarks Patient seen in her room with nurse Lisa and medical student Oscar. Chart review. Staff states patient show some significant mood and behavior changes torsionally afternoon and the evening. Becoming loud angry and irritable. However at the present moment patient laying calmly in bed pleasant with me though appears somewhat vigilant and perhaps responding to internal stimuli though she denies for now will increase Haldol to 10 mg twice a day Review of Systems Except as stated in HPI: all other systems reviewed are Neg Objective Alert: Yes [place]: Person, Place, Date Mood: Happy Affect: Other (elevated) Memory Intact: Comment (fair) Hallucinations: Auditory (denies today) Delusions: Yes Delusion Type: Grandiose Suicidal: Ideation (denies) Homicidal: Ideation (denies) Insight/Judgment Poor Vitals/IOs Vital Signs Date Time Temp Pulse Resp B/P Pulse Ox O2 Delivery O2 Flow Rate FiO2 12/29/16 05:55 97.4 70 18 103/61 96 Assessment & Plan Problem List: (1) Schizoaffective disorder, bipolar type ICD Code: F25.0 Assessment & Plan Estimated LOS: days patient remains somewhat psychotic and paranoid, though behaviors are more evident towards late afternoon and evening she medication adjustments above Justification for Cont. Inpt. At this time patient will decompensate then placed in a lower level of care Discharge Planning To be determined Jean Chaudhry MD Dec 29, 2016 10:14
[2016-12-29] MEDS: HALOPERIDOL 10 MG TAB PO SCH ×2 (10:15→21:00)
--- NOTE | 2016-12-29 11:50 | PD.TTN ---
Present for Treatment Team Treatment Team Staff: Provider (Dr. Regan), Nurse (Raji), Psych Therapist ( Di), Occupational Therapist (Dago) Patient Problems 1. Discharge planning 2. Medication compliance 3. Knowledge deficit 4. Lack of coping skills Progress Toward Goals Provider Input: Patient is cooperative and has been med comjpliant. Patient notes that voices have subdude. Patient was somewhat labile in afternoon but has since calmed down. Nurse Input: Patient had been agitated in the afternoon and is usually compliant and cooperative in the mornings. Patient is compliant with medications. Psych Therapist Input: Patient is cooperative and calm during assessment. Patient notes that she had a court hearing and counselor looked it up. Patient is requesting to go back to [facility]. Occupational Therapist Input: Patient has not been attending groups. Di Conteh RMI Dec 29, 2016 11:49
[2016-12-29] MEDS: hydrOXYzine HCL 50 MG TAB PO PRN (17:21)
[2016-12-29 18:18] VITALS: BP 107/63; PULSE 77; RESP 18; TEMP 97.6; O2SAT 98
[2016-12-29] MEDS: REMOVE OLD PATCH T-DERMAL SCH (21:00)
[2016-12-29] MEDS: LORazepam 1 MG TAB PO PRN (21:14)
[2016-12-29] MEDS: traZODone HCL 50 MG TAB PO PRN (21:14)
[2016-12-30 06:21] VITALS: BP 98/56; PULSE 60; RESP 18; TEMP 97.6; O2SAT 98
[2016-12-30] MEDS: NICOTINE 21 MG/24 HR PATCH T-DERMAL SCH (08:54)
[2016-12-30] MEDS: HALOPERIDOL 10 MG TAB PO SCH ×2 (08:54→20:51)
[2016-12-30] MEDS: TOPIRAMATE 100 MG TAB PO SCH ×2 (08:54→20:51)
--- NOTE | 2016-12-30 13:59 | HHI.PYPN ---
Subjective Remarks Patient seen in her room with nurse Ravi, patient calm pleasant compliant with medications it appears suitable lability is also softening, the compliance with medication. At this time I feel patient has capacity to sign voluntary will lift Rodriguez act allow her to sign voluntary Review of Systems Except as stated in HPI: all other systems reviewed are Neg Objective Alert: Yes [place]: Person, Place, Date Mood: Happy Affect: Other (elevated) Memory Intact: Comment (fair) Hallucinations: Auditory (denies today) Delusions: Yes Delusion Type: Grandiose Suicidal: Ideation (denies) Homicidal: Ideation (denies) Insight/Judgment Poor Vitals/IOs Vital Signs Date Time Temp Pulse Resp B/P Pulse Ox O2 Delivery O2 Flow Rate FiO2 12/30/16 06:21 97.6 60 18 98/56 98 Assessment & Plan Problem List: (1) Schizoaffective disorder, bipolar type ICD Code: F25.0 Assessment & Plan Estimated LOS: days patient's psychosis slowly resolving, she is compliant with her medications, plus behavioral problems. Lift Rodriguez act allow her sign voluntary Justification for Cont. Inpt. At this time patient will decompensate the placed in a lower level of care Discharge Planning To be determined Jean Chaudhry MD Dec 30, 2016 13:59
[2016-12-30] MEDS: hydrOXYzine HCL 50 MG TAB PO PRN (20:20)
[2016-12-30] MEDS: LORazepam 1 MG TAB PO PRN (20:52)
[2016-12-30] MEDS: REMOVE OLD PATCH T-DERMAL SCH (21:00)
[2016-12-31 05:59] VITALS: BP 91/52; PULSE 82; RESP 18; TEMP 97.6; O2SAT 98
[2016-12-31] MEDS: TOPIRAMATE 100 MG TAB PO SCH ×2 (08:51→20:34)
[2016-12-31] MEDS: HALOPERIDOL 10 MG TAB PO SCH ×2 (08:51→20:34)
[2016-12-31] MEDS: NICOTINE 21 MG/24 HR PATCH T-DERMAL SCH (08:54)
[2016-12-31] MEDS: hydrOXYzine HCL 50 MG TAB PO PRN (11:07)
--- NOTE | 2016-12-31 16:36 | HHI.PYPN ---
Subjective Remarks Patient seen in [facility] with nurse Dee in medical student Oscar, chart reviewed. Patient compliant medications. Patient continues to do well, now denying suicidality homicidality voices or visions. The patient does well through the night tonight consider discharge tomorrow to [facility] Review of Systems Except as stated in HPI: all other systems reviewed are Neg Objective Alert: Yes [place]: Person, Place, Date Mood: Happy Affect: Other (elevated) Memory Intact: Comment (fair) Hallucinations: Auditory (denies today) Delusions: Yes Delusion Type: Grandiose Suicidal: Ideation (denies) Homicidal: Ideation (denies) Insight/Judgment Poor Vitals/IOs Vital Signs Date Time Temp Pulse Resp B/P Pulse Ox O2 Delivery O2 Flow Rate FiO2 12/31/16 05:59 97.6 82 18 91/52 98 Assessment & Plan Problem List: (1) Schizoaffective disorder, bipolar type ICD Code: F25.0 Assessment & Plan Estimated LOS: days patient psychosis is slowly resolving, she is Darvin compliance with medications no behavior problem, patient continues to do well consider discharge tomorrow to [facility] Justification for Cont. Inpt. See above Discharge Planning To be determined Jean Chaudhry MD Dec 31, 2016 16:36
[2016-12-31 17:58] VITALS: BP 133/56; PULSE 81; RESP 17; TEMP 98.5; O2SAT 99
[2016-12-31] MEDS: LORazepam 1 MG TAB PO PRN (20:34)
[2016-12-31] MEDS: traZODone HCL 50 MG TAB PO PRN (20:34)
[2016-12-31] MEDS: REMOVE OLD PATCH T-DERMAL SCH (20:35)
[2017-01-01 05:59] VITALS: BP 98/51; PULSE 53; RESP 16; TEMP 97.8; O2SAT 96
[2017-01-01] MEDS: HALOPERIDOL 10 MG TAB PO SCH ×2 (08:46→21:23)
[2017-01-01] MEDS: TOPIRAMATE 100 MG TAB PO SCH ×2 (08:46→21:23)
[2017-01-01] MEDS: NICOTINE 21 MG/24 HR PATCH T-DERMAL SCH (08:47)
--- NOTE | 2017-01-01 15:32 | HHI.PYPN ---
Subjective Remarks Patient seen in short [facility] on 2699 with nurse Dee and medical student Oscar. Patient upset irritable and profane related to delays in discharge to [facility] because staff will not come to see her until Wednesday. Patient is able to the talk down from this with her being transmitted 2600 unit to see how she behaves in a higher functioning unit. She was pleased with this. For now continue treatment no change Review of Systems Except as stated in HPI: all other systems reviewed are Neg Objective Alert: Yes [place]: Person, Place, Date Mood: Happy Affect: Other (elevated) Memory Intact: Comment (fair) Hallucinations: Auditory (denies today) Delusions: Yes Delusion Type: Grandiose Suicidal: Ideation (denies) Homicidal: Ideation (denies) Insight/Judgment Poor Vitals/IOs Vital Signs Date Time Temp Pulse Resp B/P Pulse Ox O2 Delivery O2 Flow Rate FiO2 01/01/17 05:59 97.8 53 16 98/51 96 Assessment & Plan Problem List: (1) Schizoaffective disorder, bipolar type ICD Code: F25.0 Assessment & Plan Estimated LOS: days patient continues somewhat paranoid vigilant and labile. Though was able to be calmed and process her behaviors to the point where she was transferred to 2600 unit for the weekends Justification for Cont. Inpt. At this time patient would decompensate the placed in the lower level of care Discharge Planning To be determined Jean Chaudhry MD Jan 01, 2017 15:31
[2017-01-01 16:15] VITALS: BP 135/62; PULSE 82; RESP 16; TEMP 98; O2SAT 98
[2017-01-01] MEDS: hydrOXYzine HCL 50 MG TAB PO PRN (19:37)
[2017-01-01] MEDS: REMOVE OLD PATCH T-DERMAL SCH (21:00)
[2017-01-02] MEDS: HALOPERIDOL 10 MG TAB PO SCH ×2 (08:11→20:44)
[2017-01-02] MEDS: TOPIRAMATE 100 MG TAB PO SCH ×2 (08:11→20:44)
[2017-01-02] MEDS: NICOTINE 21 MG/24 HR PATCH T-DERMAL SCH (08:13)
[2017-01-02] MEDS: hydrOXYzine HCL 50 MG TAB PO PRN (11:00)
--- NOTE | 2017-01-02 16:01 | HHI.PYPN ---
Subjective Remarks Pt seen and discussed with staff. She has been irritable with staff but compliant with medications and care. She denies medication side effects. Mood is hypomanic and thought process is tangential and loose at times. She c/o of yeast infection symptoms(burning and itchy vulva with white, thick cheese like discharge) and requests monistat cream as it works well for her. No SI/HI Objective Alert: Yes [place]: Person, Place, Date Mood: Other (hypomanic) Affect: Other (elevated) Memory Intact: Comment (fair) Hallucinations: Auditory (denies today) Delusions: Yes Delusion Type: Grandiose Suicidal: Ideation (denies) Homicidal: Ideation (denies) Insight/Judgment poor Vitals/IOs Vital Signs Date Time Temp Pulse Resp B/P Pulse Ox O2 Delivery O2 Flow Rate FiO2 01/01/17 16:15 98.0 82 16 135/62 98 Assessment & Plan Problem List: (1) Schizoaffective disorder, bipolar type ICD Code: F25.0 Assessment & Plan Continue current tx plan. Estimated LOS: days Justification for Cont. Inpt. impairments in social functioning due to mood lability Mindy Jamison MD Jan 02, 2017 16:01
[2017-01-02 18:00] VITALS: BP 105/73; PULSE 72; RESP 19; TEMP 97.7; O2SAT 99
[2017-01-02] MEDS: REMOVE OLD PATCH T-DERMAL SCH (20:45)
[2017-01-02] MEDS: MICONAZOLE NITRATE 200 MG VAG SUPP VAGINAL SCH ×2 (20:52→22:45)
[2017-01-03 04:44] VITALS: BP 100/62; PULSE 73; RESP 16; TEMP 97.9; O2SAT 98
[2017-01-03] MEDS: HALOPERIDOL 10 MG TAB PO SCH ×2 (08:36→20:26)
[2017-01-03] MEDS: NICOTINE 21 MG/24 HR PATCH T-DERMAL SCH (08:36)
[2017-01-03] MEDS: TOPIRAMATE 100 MG TAB PO SCH ×2 (08:36→20:26)
[2017-01-03] MEDS: hydrOXYzine HCL 50 MG TAB PO PRN (09:57)
[2017-01-03 18:20] VITALS: BP 116/83; PULSE 95; RESP 18; TEMP 98.6; O2SAT 99
--- NOTE | 2017-01-03 18:23 | HHI.PYPN ---
Subjective Remarks Pt seen and discussed with staff. She reports that her mood has been "up and down like a roller coaster" and that she is paranoid and feels that she must sneak around the unit because she is afraid that men will whisper "pussy, fuck, tits" at her. She denies any inappropriate behavior by peers or staff, but states that she is having intrusive paranoid thoughts. "I always feel like people are watching me and thinking about me." No SI/HI. No medication side effects or EPS. Staff report that pt appears to be responding to internal stimuli but has not been disruptive on unit today. No SI/HI. Objective Alert: Yes [place]: Person, Place, Date Mood: Other (hypomanic) Affect: Other (elevated) Memory Intact: Comment (fair) Hallucinations: Auditory (internal stimulation) Delusions: Yes Delusion Type: Paranoid Suicidal: Ideation (denies) Homicidal: Ideation (denies) Insight/Judgment poor Vitals/IOs Vital Signs Date Time Temp Pulse Resp B/P Pulse Ox O2 Delivery O2 Flow Rate FiO2 01/03/17 04:44 97.9 73 16 100/62 98 Intake and Output 01/02/17 01/02/17 01/03/17 08:00 16:00 00:00 Intake Total 420 ml Balance 420 ml Assessment & Plan Problem List: (1) Schizoaffective disorder, bipolar type ICD Code: F25.0 Assessment & Plan Continue current tx plan. Estimated LOS: days Justification for Cont. Inpt. psychosis Mindy Jamison MD Jan 03, 2017 18:23
[2017-01-03 19:23] VITALS: TEMP 98.6
[2017-01-03 19:24] VITALS: BP 116/83; PULSE 95; RESP 17; TEMP 98.6; O2SAT 99
[2017-01-03] MEDS: LORazepam 1 MG TAB PO PRN (20:26)
[2017-01-03] MEDS: MICONAZOLE NITRATE 200 MG VAG SUPP VAGINAL SCH (20:27)
[2017-01-03] MEDS: REMOVE OLD PATCH T-DERMAL SCH (20:34)
[2017-01-03] MEDS: traZODone HCL 50 MG TAB PO PRN (20:54)
[2017-01-04] MEDS: TOPIRAMATE 100 MG TAB PO SCH (09:10)
[2017-01-04] MEDS: NICOTINE 21 MG/24 HR PATCH T-DERMAL SCH (09:10)
[2017-01-04] MEDS: HALOPERIDOL 10 MG TAB PO SCH (09:10)
--- NOTE | 2017-01-04 14:30 | PD.TTN ---
Present for Treatment Team Treatment Team Staff: Provider (Dr Chaudhry), Psych Therapist (Tish ), Occupational Therapist (Irineo) Patient Problems 1. Discharge planning 2. Medication compliance 3. Knowledge deficit 4. Lack of coping skills Progress Toward Goals Provider Input: Pt responds to meds and is improving Psych Therapist Input: 1822 is on chart can return to [facility] called [facility] Occupational Therapist Input: has come to some groups Tish Dillon [employer] [facility] Jan 04, 2017 14:30
[2017-01-04] MEDS ORDERED: TOPA100T11 PO (14:57)
[2017-01-04] MEDS ORDERED: HALO10TA PO (14:57)
--- NOTE | 2017-01-04 15:02 | HHI.DS ---
Psychiatry Discharge Summary Inpatient Psychiatric care?: Yes Advance Directive: No Reason Not Provided: DOES NOT HAVE Mental Health AdvanceDirective: No Health Care Proxy: No Admission Admission Date Dec 22, 2016 at 16:08 Admission Diagnosis: (1) Schizoaffective disorder, bipolar type ICD Code: F25.[address] De La O's H&P: This is a 36-year-old female with a long history of schizoaffective disorder, Michael acted by law enforcement for unsafe behavior. According to the Rodriguez act , the patient walked up to the law enforcement officers patrol car and indicated she wanted to kill herself. She stated she did not want to live the way she was living. She further indicated she was terrified and wanted to jump in front of traffic. Upon interview by this physician, the patient was very loud, hyperverbal, expansive and manic, waving her arms and exclaiming to this physician "I jumped in front of the cars. I wanted to tell them I'm not crazy." She has little or no insight that jumping in front of random automobiles was dangerous. She acknowledged the Rodriguez act report written by police. She is unable to provide an explanation as to why she feels the way she does. However, she states she was running out in front of cars at her adult living facility and could not help herself. She got off the hospital emergency department bed at this time and began waving her arms and legs and smiling inappropriately. She admits to a diagnosis of schizoaffective disorder and states that she takes Haldol for treatment. She is usually followed at [facility]. Her compliance with medications is suspect and she will not answer questions regarding drug abuse. However, she remains highly dangerous to self as she is unable to determine the dangerousness of her behavior. On my examination today: Patient seen and examined with nurse. Chart reviewed. Case discussed with nursing staff. On my examination today, the patient minimizes the circumstances of her presentation here. She says that she was feeling stressed out prior to coming into the hospital because she put some pictures online of friends and family and began to feel like she was being stalked as a result of this. She says of the suicidal ideation that she allegedly expressed to be officer who Rodriguez acted her, "I was just saying that." She denies any suicidal or homicidal ideation at this time. She denies any audiovisual hallucinations. No sarah delusional beliefs. Psychiatric ROS is otherwise negative. Past psychiatric history: Patient follows with the [facility] and Dr. Leon. She denies any suicide attempts. She was admitted most recently here in September of this year under my care. Family history: Patient denies a family history of mental illness. Chemical dependency history: Patient is an occasional drinker and otherwise denies substance use. Social history: Patient reports that she was recently jailed for violation of her restraining order. She resides at [facility]. She has a 12th grade education but did not graduate. She has a daughter who reportedly lives in [place]. Tobacco Use In Past 30 Days: 5 or More Cigarettes/Day Alcohol Use: 4 or More Times Per Week Hospital Course Patient's hospital course was uneventful, rest and 2700 initially showed her psychosis irritability and intrusiveness however this resolved with compliance with the medication. To the point where she was transferred to the 2600 unit for further assessment for a few days to monitor the stability of her behavior. She has done well over the weekend. She denies suicidality homicidality voices or visions. She is compliant with her medications. Thus patient to be discharged today to herself the be transferred to [facility]. To follow- up with the fact team with Rx 1 month Results Blood Pressure 116 / 83 Vital Signs Date Time Temp Pulse Resp B/P Pulse Ox O2 Delivery O2 Flow Rate FiO2 01/03/17 19:24 98.6 95 17 116/83 99 Urine toxicology negative Summary of Procedures None done Pending results at discharge: No Medications # of Antipsychotic meds at D/C: 1 Approp Antipsych med options 1 - Minimum of three failed multiple trials of monotherapy. 2 - Documented plan to taper to monotherapy due to previous use of multiple meds OR cross-taper in progress at D/C. 3 - Documentation of augmentation of Clozapine. 4 - Justification other than those listed in allowable values 1-3, document here : Discharge Discharge Date: Jan 04, 2017 Discharge Diagnosis: (1) Schizoaffective disorder, bipolar type Diagnosis: Principal ICD Code: F25.0 Mental Status Exam at Disch Alert oriented female she is calm cooperative is somewhat excited about her discharge. She is normoactive. Mood is euthymic to slightly elevated with slight increase range intensity or affect. Patients speech rate and rhythm are within normal limits though no formal thought disorder. There are no auditory or visual hallucinations and no delusions. Insight and judgment is poor to dali , r cognition grossly intact Pt Condition on Discharge: Stable Discharge Disposition: ACLF/SENIOR CARE Discharge Instructions Diet Instructions: As Tolerated, No Restrictions Activities you can perform: Regular-No Restrictions Scheduled Appointment: Silvestre Sriram Jhonatan Appointment Date: Jan 06, 2017 Appointment Time: 10:00am Discharge Time > 30 minutes Discharge/Advance Care Plan Health Problems: (1) Schizoaffective disorder, bipolar type Goals to promote your health * To prevent worsening of your condition and complications * To maintain your health at the optimal level Directions to meet your goals Take your medications as prescribed Follow your dietary instruction Follow activity as directed Keep your appointments as scheduled Take your immunizations and boosters as scheduled If your symptoms worsen call your PCP, if no PCP go to Urgent Care Center or Emergency Room For 01/02 questions related to your inpatient stay or results of tests pending at discharge, please contact Dr. Jean Chaudhry at Smoking is Dangerous to Your Health. Avoid second hand smoking Jean Chaudhry MD Jan 04, 2017 15:02
== END 2017-01-04 16:05 | DRG 885 ==
LOC: NEDAMB 15:52 → NEDA 12-22 16:08 → H270 12-22 17:10 → H260 01-01 17:24
PROVIDERS: ADMIT Psychiatry & Neurology Psychiatry; ATTEND Psychiatry & Neurology Psychiatry
DX: F25.0 Schizoaffective disorder, bipolar type (principal); R45.851 Suicidal ideations; F17.210 Nicotine dependence, cigarettes, uncomplicated; B37.3 Candidiasis of vulva and vagina
CPT/HCPCS: 80048; 80053; 80061; 80307; 82306; 82607; 83036; 84443; 84703; 85025; 93005; J2426; Q0163